=== PATIENT | male | born 1935 | race Caucasian/White ===

== ENCOUNTER 2017-01-03 20:45 | Inpatient (IN) ==
[2017-01-03] MEDS ORDERED: cloNIDine 0.1 MG TABLET PO STA (21:28)
--- NOTE | 2017-01-03 21:35 | Emergency Department Note ---
IChristoph Meredith, am scribing for, and in the presence of, Asmita Bland DO 21: 23. IBaldo Debra, DO, personally performed the services described in this documentation, ascribed by Ada Hawthorne in my presence, and it is both accurate and complete . Arrival - Arrival Chief Complaint: Arrhythmia/Palpitations Stated Complaint: Fast, hard heartbeat, dizzy, clammy, cold ED Nursing Triage Note: was seen in er on wednesday, was put on hydralazine 50mg one bid by dr segura for bradycardia. pt c/o funny feeling, clammy, shaking. has taken hydralazine daily since wednesday. Mode of Arrival: Ambulatory Limitations: No Limitations Source: Patient, Significant other (), Old Records Reviewed, RN Notes Reviewed Time Seen by Provider: 01/03/17 21:20 - History of Present Illness HPI Narrative: Pt is an 81 y/o white male reporting to the ED with c/o "feeling funny", clammy , and shaky. He denies any chest pain. Pt was seen here in the ED 2 days ago for a possible allergic to a medication he was started on by Dr. Lugo. At this visit Dr. Segura put him on hydralazine 50 mg BID for bradycardia. He has been taking this medication for the past 2 days. Pt has a history of HTN, COPD, pneumonia, kidney stones, and prostate cancer. Onset (ago): hour(s) Allergies/Adverse Reactions: Allergies Allergy/AdvReac Type Severity Reaction Status Date / Time ceftriaxone [From Rocephin] Allergy ANAPHYLAXIS Verified 03/14/16 06:16 Penicillins Allergy ANAPHYLAXIS Verified 03/14/16 06:16 Home Medications: Home Medications Medication Instructions Recorded Confirmed Type Aspirin [Ecotrin] 81 mg PO BEDTIME 03/14/16 01/03/17 History Atorvastatin [Lipitor] 5 mg PO DAILY 03/14/16 01/03/17 History Azelastine HCl [Azelastine 0.1% 1 spray BOTH NARES BID 03/14/16 01/03/17 History Nasal [place]] Ipratropium/Albuterol Inhaler 1 puff RESP TX QID 03/14/16 01/03/17 History [Combivent Respimat Inhaler] Irbesartan 300 mg PO DAILY 03/14/16 01/03/17 History Montelukast Tab [Singulair Tab] 10 mg PO DAILY 03/14/16 01/03/17 History amLODIPine [Norvasc] 10 mg PO BEDTIME 03/14/16 01/03/17 History Azithromycin Tab [Zithromax Tab] 250 mg PO DAILY #6 tablet 03/19/16 01/03/17 Rx Budesonide/Formoterol 160-4.5 2 puff INH BID #1 inhaler 03/19/16 01/03/17 Rx [Symbicort 160-4.5] Levofloxacin Tab [Levaquin Tab] 500 mg PO DAILY #6 tablet 03/19/16 01/03/17 Rx guaiFENesin ER TAB [Mucinex] 600 mg PO BID #60 tablet 03/19/16 01/03/17 Rx predniSONE TAB [PredniSONE] 10 mg PO DIRECTED #60 tablet 03/19/16 01/03/17 Rx hydrALAZINE TAB [Apresoline Tab] 50 mg PO BID #60 tablet 01/01/17 01/03/17 Rx Review of System - Review of System 12 point system: reviewed and no additional remarkable complaints except as stated - Review of System Constitutional: Present: as per HPI, other ("feeling funny" , clammy, and shaky) Cardiovascular: Present: as per HPI. Absent: chest pain Medical,Surgical,& Family Hx - Medical History Cardio: History of: Hypertension No history of: Pacemaker, PVD, Valvular Heart Disease Neurology: No history of: Brain Aneurysm, Cerebral Hemorrhage, Cerebrovascular Accident , Cerebral Palsy, Dementia, Migraine, Multiple Sclerosis, Parkinson's Disease, Peripheral Neuropathy, Seizures, TIA, Vertigo, Neurologocal Cancer HEENT: No history of: Ear Problem, Eye Problem, Dental Problems, Glaucoma, Oral Cancer, HEENT Problems Endocrine: No history of: Diabetes Mellitus (IDDM), Diabetes Mellitus (NIDDM), Thyroid Disorder, Endocrine Cancer, Endocrine Problems Respiratory: History of: COPD, Pneumonia, Respiratory Problems No history of: Intubation, Obstructive Sleep Apnea, Pulmonary Embolism, Pulmonary Hypertension, Lung Cancer Renal: No history of: Renal (Kidney) Cancer, Dialysis, Renal Failure, Renal Problems Genitourinary: History of: Kidney Stones, Prostate Problems (prostate cancer) No history of: Bladder Problem, Recurring Urinary Tract Infections, Genitourinary Cancer, Problems Gastrointestinal: No history of: Hemorrhoids, Hematochezia, Hepatitis, Liver Problems, Pancreatitis, Polyps, Ulcerative Colitis, Gastrointestinal Cancer, GI Problems Musculoskeletal: No history of: Amputation Reproductive: No histroy: Reproductive Problems Other: No history of: Malignant Hyperthermia - Surgical History Cardiac Surgeries: Sugical HX of: Cardiac Catheterization Patient Denies: Femoral-Popliteal Bypass Graft, Cardiac Surgery, Carotid Endarterectomy, Internal Defibrillator, Vascular Access Devices Thoracic Surgeries: Patient denies;: Kidney (Renal Surgery), Lithotripsy, Nephrectomy, Organ Transplant, Lobectomy Neurologic Surgeries: Patient denies: Brain Aneurysm, Cerebral Hemorrhage, Neurologic Surgery HEENT Surgeries: Patient denies: Carotid Endarterectomy, Eye Surgery, Tonsilectomy & Adenoidectomy Abdominal Surgeries: Surgical HX of: Colonoscopy, EGD Patient denies: Abdominal Surgery, Appendectomy, Cholecystectomy, Gastric Bypass Surgery, Hernia Repair, Splenectomy Reproductive Surgeries: Patient denies;: Cystoscopy, Genitourinary Surgery, Prostate Surgery Orthopedic Surgeries: Patient denies;: Implanted Devices, Orthopedic Surgery, Spinal Surgery, Total Hip Replacement, Total Knee Replacement - Family History Family History: Reports;: Family Cancer, Family Hypertension Denies;: Family Psychiatric Problems, Family Stroke - Social History Smoking Status: Never smoker Frequency of Alcohol Use: None Type of Drug Use: None Exam Vital Signs: Vital Signs Temperature 97.8 F 01/03/17 21:05 Pulse Rate 46 L 01/03/17 21:05 Respiratory Rate 20 01/03/17 21:05 Blood Pressure 165/96 01/03/17 21:05 O2 Sat by Pulse Oximetry 97 01/03/17 21:05 - General General appearance: alert, in no apparent distress - Head Head exam: Present: atraumatic, normocephalic - Eye Eye exam: Present: normal appearance, PERRL, EOMI - ENT ENT exam: Present: mucous membranes moist, normal external ear exam - Neck Neck exam: Present: full ROM, trachea midline. Absent: tenderness, meningismus , lymphadenopathy, thyromegaly - Chest Chest inspection: Present: symmetric chest wall rise. Absent: tenderness, rash - Respiratory Respiratory exam: Present: normal lung sounds bilaterally. Absent: respiratory distress - Cardiovascular Cardiovascular exam: Present: regular rate, normal rhythm, murmur (slight diastolic murmur). Absent: rubs, gallop - Abdominal Exam Abdominal exam: Present: soft, distention (mild), tenderness (episgastric ), normal bowel sounds - Extremities Exam Extremities exam: Present: full ROM, normal capillary refill. Absent: tenderness, pedal edema, calf tenderness - Back Exam Back exam: Present: full ROM. Absent: tenderness - Neurological Exam Neurological exam: Present: alert, oriented X3, CN II-XII intact. Absent: motor sensory deficit - Psychiatric Psychiatric exam: Present: normal affect, normal mood - Skin Skin exam: Present: warm, dry, intact, normal color Course Course Narrative: spoke with Dr Campos about pt . he agrees to admission. pt is stable at this time Results - Labs CBC & BMP: 01/03/17 21:30 01/03/17 21:30 Lab Results: I have reviewed the patients labs Labs: Laboratory Tests 01/03/17 21:30 WBC 7.4 RBC 4.58 Hgb 13.2 L Hct 39.8 L MCV 86.9 L Plt Count 200 MPV 9.1 L Laboratory Tests 01/03/17 21:30 INR 1.0 PT Patient/Control Mix 10.1 Circ Anticoag PTT 25.2 Laboratory Tests 01/03/17 21:30 Sodium 138 Potassium 4.0 Chloride 102 Carbon Dioxide 23 Anion Gap 17.0 H BUN 21 H Creatinine 1.30 Glucose 158 H Calcium 8.4 L CK-MB (CK-2) 2.2 Troponin I < 0.015 Globulin 2.2 L Laboratory Tests 01/03/17 21:30 B-Natriuretic Peptide 102 H - EKG EKG results: interpreted by JAYA, sinus rhythm - Diagnostic Findings Procedure: Chest x-ray: report reviewed by me (Minimal strandy scar or subsegmental atelectasis left lung base. Otherwise unchanged from the previous study. ) Disposition Clinical Impression: Bradycardia Case discussed with: patient, patient's family Disposition: Still a Patient Condition: Stable Time of Disposition: 22:18
[2017-01-03 21:36] LABS: Basophils % 0.5 % (0.0-0.8); Eosinophils # 0.2 10*3/uL (0.0-0.87); Eosinophils % 3.1 % (0.00-10.9); Hematocrit 39.8 VOL% (42.0-52.0); Hemoglobin 13.2 GM/DL (14.0-18.0); Immature Granulocytes % 0.3 %; Immature Granulocytes Absolute 0.02 #; Lymphocytes # 3.1 10*3/uL (1.4-4.0); Lymphocytes % 42.1 % (21.2-54.2); Mean Corpuscular HGB Conc 33.2 GM/DL (32-36); Mean Corpuscular Hemoglobin 29 PG (27-34); Mean Corpuscular Volume 86.9 FL (87-102); Mean Platelet Volume 9.1 FL (9.6-12.0); Monocytes # 0.7 10*3/uL (0.11-0.8); Monocytes % 9.8 % (1.7-12.7); Neutrophils # 3.3 10*3/uL (1.4-7.4); Neutrophils % 44.2 % (38.7-73.9); Platelet Count 200 T/CUMM (130-400); Red Blood Count 4.58 MC/CUMM (3.8-5.5); Red Cell Distribution Width 12.6 % (9.3-17.3); White Blood Count 7.4 T/CUMM (4-12)
[2017-01-03 21:48] LABS: PT Patient Result 10.1 SECS; Partial Thromboplastin Time 25.2 SECS (0-40)
--- NOTE | 2017-01-03 21:56 | XRay Report ---
History: Abnormal breath sounds Date: 01/03/2017 Study: Chest x-ray AP portable Comparison exam: March 16, 2016 chest x-ray The cardiac silhouette is upper normal in size. The mediastinal contours are unchanged. The pulmonary vasculature is not engorged. There is no gross pleural effusion. There is mild strandy subsegmental atelectasis in the left lung base. The lungs are otherwise clear. There is mild thoracic spondylosis Impression: Minimal strandy scar or subsegmental atelectasis left lung base. Otherwise unchanged from the previous study PROCEDURE INTERPRETED AT [facility] DEPARTMENT OF RADIOLOGY Final Report Signed by: Dr. Lindsay Greene
[2017-01-03 21:59] LABS: Alanine Aminotransferase 26 U/L (16-61); Albumin 4.2 G/DL (3.4-5.0); Alkaline Phosphatase 78 U/L (45-117); Aspartate Amino Transferase 14 U/L (0-37); Blood Urea Nitrogen 21 MG/DL (7-18); Calcium 8.4 MG/DL (8.5-10.1); Glucose 158 MG/DL (74-106); Osmolality,Calculated 280.7 MOS/KG (273-304); Sodium 138 MMOL/L (136-145); Total Protein 6.4 G/DL (6.4-8.3); Troponin I Only < 0.015 NG/ML (0.00-0.045)
[2017-01-03] MEDS ORDERED: ALPRAZolam 0.25 MG TABLET PO ONE (22:34)
[2017-01-03] MEDS ORDERED: SODIUM CHLORIDE 0.9% 250 ML IV STA (22:35)
[2017-01-03] MEDS ORDERED: ONDANSETRON 4 MG/2 ML VIAL IV PRN (22:36)
[2017-01-03] MEDS ORDERED: MAGNESIUM SULF RIDER 4 GM in PREMIX 1 EACH IV PRN (22:36)
[2017-01-03] MEDS ORDERED: MAGNESIUM SULF RIDER 2 GM in PREMIX 1 EACH IV PRN (22:36)
[2017-01-03] MEDS ORDERED: ALPRAZolam 0.5 MG TABLET ONE (22:37)
[2017-01-03] MEDS ORDERED: ENOXAPARIN 40 MG/0.4 ML SYRINGE SUBCUT SCH (23:00)
[2017-01-04 00:59] LABS: Troponin I Only < 0.015 NG/ML (0.00-0.045)
[2017-01-04] MEDS: SODIUM CHLORIDE 0.9% 1,000 ML IV SCH ×3 (01:29→19:55)
[2017-01-04 03:07] LABS: Risk Ratio 3.09; VLDL CHOLESTEROL 16.8 MG/DL
[2017-01-04 03:08] LABS: Troponin I Only < 0.015 NG/ML (0.00-0.045)
[2017-01-04 06:17] LABS: Troponin I Only 0.021 NG/ML (0.00-0.045)
--- NOTE | 2017-01-04 07:37 | EKG Report ---
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
--- NOTE | 2017-01-04 07:54 | EKG Report ---
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
--- NOTE | 2017-01-04 07:55 | EKG Report ---
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
[2017-01-04] MEDS ORDERED: ZALEPLON 5 MG CAPSULE PO PRN (10:50)
[2017-01-04] MEDS ORDERED: BISACODYL 5 MG TABLET PO PRN (10:50)
[2017-01-04] MEDS ORDERED: ACETAMINOPHEN 325 MG TABLET PO PRN (10:50)
--- NOTE | 2017-01-04 11:10 | Cardiology History & Physical ---
<Swathi Lynn E - Last Filed: 01/04/17 11:47> Assessment and Plan - Time spent with patient Time spent with patient: Greater than 30 minutes (due to assessment, plan, and documentation) (1) Symptomatic bradycardia Status: Acute Assessment and plan: HR currently in the 50's and asymptomatic. All kash blocking agents have been held. Will discuss rescheduling left heart catheterization to 01/06/[address] Ye to follow with further plan and addendum. Current Visit: Yes (2) Hypertension Status: Chronic Assessment and plan: Will resume home medications. Patient is hesitant to restart Procardia XL due to recent side effects of constipation, weakness, and dizziness. Will discuss with Dr. Ye. Further plan and addendum to follow. Current Visit: Yes (3) History of coronary artery disease Status: Chronic Current Visit: Yes (4) Hyperlipidemia Status: Chronic Assessment and plan: Continue statin. Current Visit: Yes (5) History of prostate cancer Status: Chronic Current Visit: Yes History of Present Illness Chief complaint: bradycardia History of present illness: Mr. Cadena is a 81 year old male who is routinely followed by Dr. Lugo. He presented to the emergency room last night with complaints of "feeling funny," dizziness, feeling cold and clammy, and bradycardia. Mr. Cadena has a history of coronary artery disease, hypertension, bradycardia with heart rates in the 50's, hypercholesterolemia, and previous prostate cancer. He is a lifetime nonsmoker. His primary care provider is Dr. Orosco. Mr. Cadena has been to the hospital twice within the past week with feelings of dizziness, feeling chilled and clammy, and "feeling funny." Since the end of August 2016, he has had issues with uncontrolled hypertension. He is active and works out in the gym at [employer] several times weekly, follows a low-salt diet, and still works around 40 hours per week. Mr. Cadena tells me he had been on Avapro and Norvasc for many years and his blood pressure had been very well controlled until August of this past year. He kept a blood pressure log for a couple months and reported back to Dr. Lugo with his readings. Upon reporting back, his medications were changed. The norvasc was discontinued and he was placed on Procardia XL 90 mg PO daily. He continued to monitor his blood pressure and noted systolic readings in the 180's. Bystolic was added to his BP medication regimen but Mr. Cadena reports he did not start this as he was afraid his heart rate would drop too low. After speaking with the [facility], he started the Bystolic last . On 01/01/17, he presented to the emergency room with complaints of dizziness, weakness, near syncope, and bradycardia with pulse of 35. He was monitored in the emergency department. Bystolic was discontinued and he was placed on Hydralazine 50 mg PO three times daily. He had an appointment to follow up with Dr. Lugo tomorrow. Last night, Mr. Cadena tells me that around 1929, he began to "feel funny" and began shaking and feeling cold and clammy as he did on Wednesday. He reports his heart rate has continued to be in the 40's-50's since coming to the emergency room on Wednesday. He recently underwent stress testing which was found to be suspicious for ischemia and was scheduled for a left heart catheterization on . Ejection fraction per stress testing was estimated at 49%. He denies any chest pain or dyspnea at rest or on exertion, denies nausea, vomiting, diaphoresis. His EKG on admission showed a sinus rhythm with first degree AV block. This morning, he had some telemetry rhythm strips which appear to be a type II second degree block with heart rates in the 30's. Last heart catheterization was performed 06/09/14 during which he received successful stenting of an in-stent restenosis related to bare metal stent placement in the mid LAD and primary stenting of an 80% stenosis of the proximal LAD. At that time, he was also found to have distal anterior and apical hypokinesis and an ejection fraction in the 40% range. Home Medications Medication Instructions Recorded Confirmed Type Aspirin [Ecotrin] 81 mg PO BEDTIME 03/14/16 01/04/17 History Atorvastatin [Lipitor] 5 mg PO DAILY 03/14/16 01/04/17 History Azelastine HCl [Azelastine 0.1% 1 spray BOTH NARES BID 03/14/16 01/04/17 History Nasal [place]] Irbesartan 300 mg PO DAILY 03/14/16 01/04/17 History Montelukast Tab [Singulair Tab] 10 mg PO QOTHER DAY 03/14/16 01/04/17 History Azithromycin Tab [Zithromax Tab] 250 mg PO DAILY #6 tablet 03/19/16 01/04/17 Rx guaiFENesin ER TAB [Mucinex] 600 mg PO BID #60 tablet 03/19/16 01/04/17 Rx hydrALAZINE TAB [Apresoline Tab] 50 mg PO BID #60 tablet 01/01/17 01/04/17 Rx Beclomethasone 80 Mcg Inhaler 1 puff INH BID 01/04/17 01/04/17 History [Qvar 80 Mcg] Fluticasone 50 Mcg Nasal [place] 2 spray BOTH NARES DAILY 01/04/17 01/04/17 History [Flonase Nasal [place]] Nifedipine [Nifedipine ER] 90 mg PO DAILY 01/04/17 01/04/17 History Allergies Allergy/AdvReac Type Severity Reaction Status Date / Time ceftriaxone [From Rocephin] Allergy ANAPHYLAXIS Verified 03/14/16 06:16 Penicillins Allergy ANAPHYLAXIS Verified 03/14/16 06:16 Review of systems: - Constitutional: Present: weakness, chills, As per HPI. Absent: anorexia, daytime sleepiness, excessive sweating, fever(s), frequent falls, headache(s), increased appetite, lethargy, malaise, night sweats, stops breathing during sleep, weight gain, weight loss, fatigue. - EENT Eyes: Present: As per HPI. Absent: blurry vision, diplopia, loss of vision Ears: Present: As per HPI. Absent: decreased hearing, ear discharge, ear pain Nose, mouth and throat: Present: As per HPI. Absent: dysphagia, epistaxis, headache(s), hoarseness, lip swelling, nasal congestion, neck mass, neck pain, sinus pressure, sore throat, throat swelling, tongue swelling, vertigo - Cardiovascular: Present: edema (to RLE on occasion), lightheadedness, as per HPI. Absent: chest pain at rest, chest pain with activity, dyspnea, dyspnea on exertion, claudication, diaphoresis, radiating jaw, neck or arm pain, orthopnea , palpitations, PND - Respiratory: Present: as per HPI. Absent: dyspnea, dyspnea on exertion, cough , hemoptysis, wheezing, snoring, pain on inspiration - Gastrointestinal: Present: constipation, As per HPI. Absent: abdominal pain, bloating, change in bowel habits, diarrhea, heartburn, hematemesis, hematochezia , loose stools, melena, nausea, vomiting - Genitourinary: Present: As per HPI. Absent: difficulty urinating, dysuria, flank pain, hematuria, nocturia, urinary frequency, urinary incontinence - Musculoskeletal: Present: As per HPI. Absent: arthralgias, back pain, joint swelling, limited range of motion, muscle cramps, muscle weakness, myalgias - Neurological: Present:dizziness, near syncope, As per HPI. Absent: abnormal gait, abnormal speech, behavioral changes, confusion, convulsions, disequilibrium, focal weakness, frequent falls, headache(s), memory loss, numbness, paresthesias, radicular pain, syncope, tremor(s) - Psychiatric: Present: As per HPI. Absent: anxiety, confusion, depression, panic attacks - Endocrine: Present: As per HPI. Absent: cold intolerance, fatigue, heat intolerance, polydipsia, polyphagia - Hematologic/Lymphatic: Present: As per HPI. Absent: easy bleeding, easy bruising, lymphadenopathy Medical,Surgical,& Family Hx - Medical History Cardio: History of: Hypertension No history of: Pacemaker, PVD, Valvular Heart Disease Neurology: No history of: Brain Aneurysm, Cerebral Hemorrhage, Cerebrovascular Accident , Cerebral Palsy, Dementia, Migraine, Multiple Sclerosis, Parkinson's Disease, Peripheral Neuropathy, Seizures, TIA, Vertigo, Neurologocal Cancer HEENT: No history of: Ear Problem, Eye Problem, Dental Problems, Glaucoma, Oral Cancer, HEENT Problems Endocrine: No history of: Diabetes Mellitus (IDDM), Diabetes Mellitus (NIDDM), Thyroid Disorder, Endocrine Cancer, Endocrine Problems Respiratory: History of: COPD, Pneumonia, Respiratory Problems No history of: Intubation, Obstructive Sleep Apnea, Pulmonary Embolism, Pulmonary Hypertension, Lung Cancer Renal: No history of: Renal (Kidney) Cancer, Dialysis, Renal Failure, Renal Problems Genitourinary: History of: Kidney Stones, Prostate Problems (prostate cancer) No history of: Bladder Problem, Recurring Urinary Tract Infections, Genitourinary Cancer, Problems Gastrointestinal: No history of: Hemorrhoids, Hematochezia, Hepatitis, Liver Problems, Pancreatitis, Polyps, Ulcerative Colitis, Gastrointestinal Cancer, GI Problems Musculoskeletal: No history of: Amputation Reproductive: No histroy: Reproductive Problems Other: No history of: Malignant Hyperthermia - Surgical History Cardiac Surgeries: Sugical HX of: Cardiac Catheterization Patient Denies: Femoral-Popliteal Bypass Graft, Cardiac Surgery, Carotid Endarterectomy, Internal Defibrillator, Vascular Access Devices Thoracic Surgeries: Patient denies;: Kidney (Renal Surgery), Lithotripsy, Nephrectomy, Organ Transplant, Lobectomy Neurologic Surgeries: Patient denies: Brain Aneurysm, Cerebral Hemorrhage, Neurologic Surgery HEENT Surgeries: Patient denies: Carotid Endarterectomy, Eye Surgery, Tonsilectomy & Adenoidectomy Abdominal Surgeries: Surgical HX of: Colonoscopy, EGD Patient denies: Abdominal Surgery, Appendectomy, Cholecystectomy, Gastric Bypass Surgery, Hernia Repair, Splenectomy Reproductive Surgeries: Patient denies;: Cystoscopy, Genitourinary Surgery, Prostate Surgery Orthopedic Surgeries: Patient denies;: Implanted Devices, Orthopedic Surgery, Spinal Surgery, Total Hip Replacement, Total Knee Replacement - Family History Family History: Reports;: Family Cancer, Family Hypertension Denies;: Family Psychiatric Problems, Family Stroke - Social History Smoking Status: Never smoker Frequency of Alcohol Use: None Type of Drug Use: None Marital Status: Lives With:: Spouse Functional capacity: independent ambulation Cardiology Physical Exam - Constitutional Vitals: Vital Signs Temp Pulse Resp BP Pulse Ox 97.8 F 49 L 18 154/71 97 01/04/17 08:00 01/04/17 08:00 01/04/17 08:00 01/04/17 08:00 01/04/17 08:00 Intake and Output 01/03/17 01/04/17 01/04/17 22:59 06:59 14:59 Intake Total 1000 / 1000 Output Total 650 / 650 Balance -650 / -650 1000 / 1000 Intake: IV 1000 / 1000 Ns 1,000 ml @ 125 mls/hr 1000 / 1000 IV .Q8H LETY Rx#: [id number] Output: Urine 650 / 650 Other: # Bowel Movements 1 Weight 177 lb Exam: General: Present: Appears Well, No Apparent Distress. Pleasant and cooperative. Appears comfortable. HEENT: Present: PERRL, Normocephaly, atraumatic. Mucus Membranes Moist. No jaundice noted. Conjunctiva moist and clear, sclerae anicteric Neck: Present: Supple Neck, Midline Trachea, No Masses, No Bruit Cardiac: Present: Regular Rate and Rhythm, bradycardia, No Murmur Lungs: Present: Clear to auscultation bilaterally, no wheeze, rhonchi, rales. Neuro: Present: Awake, alert, and oriented x3. Moves all extremities well without hemiparesis or paralysis. Grossly Intact. Absent: Resting Tremor, Essential Tremor Abdomen: Present: Soft, Active Bowel Sounds, No Masses, Non-Tender, nondistended. No abdominal bruit or thrill noted. Skin: Present: Clear. Absent: Rash, No skin breakdown. Musculoskeletal: Present: No Fluid Collection, No Pain, Normal Range of Motion Extremities: Present: Normal Gait, No Clubbing, No Cyanosis, Upper Extr. Pulses 2+, Lower Extr. Pulses 2+, trace right lower extremity edema. Capillary refill less than 3 seconds. Result/EKG - Labs CBC & BMP: 01/03/17 21:30 01/03/17 21:30 Lab Results: I have reviewed the past 24 hour labs Labs: Laboratory Results - last 24 hr 01/04/17 01/04/17 01/04/17 00:06 01:40 01:40 Total Creatine Kinase 95 84 CK-MB (CK-2) 1.8 1.6 Troponin I < 0.015 < 0.015 Triglycerides 84 Cholesterol 142 LDL Cholesterol 91.0 VLDL Cholesterol 16.8 HDL Cholesterol 46 Heart Disease Risk Ratio 3.09 01/04/17 05:00 Total Creatine Kinase 76 CK-MB (CK-2) 1.4 Troponin I 0.021 Triglycerides Cholesterol LDL Cholesterol VLDL Cholesterol HDL Cholesterol Heart Disease Risk Ratio - EKG EKG results: interpreted by me, sinus rhythm (with first degree AV block) <Ibrahima Ye - Last Filed: 01/04/17 21:26> Assessment and Plan - Time spent with patient Time spent with patient: Greater than 30 minutes (1) Symptomatic bradycardia Status: Acute Assessment and plan: I, Ibrahima Ye, has seen, examined, and am involved in the evaluation and management of this patient. I've reviewed the note below/above and also see my thoughts below: The patient is having some bradycardia, slow enough and bradycardic enough that is causing his symptoms of "hollowing my chest, clamminess, and heart rate in the 40s and pallor". Differential diagnosis would include ischemia causing this problem. Plan/recommendation: I conferred care with Dr. Lugo. Pacemaker is indicated. Will be done by Dr. Rhodes tomorrow. Will watch for any signs or symptoms of ischemia afterwards. Dr. uLgo plans to do a heart cath on him on 01/14 assuming he remains stable. Currently we will keep him off any medication which caused a worse in the bradycardia. Will hold Lovenox for now. Keep him on aspirin. Check blood pressure and pulse reclining and standing. Treat constipation-MiraLAX, Metamucil. EKG every morning 3. Cardiac isoenzymes. Current Visit: Yes (2) Bradycardia Status: Acute Current Visit: Yes (3) History of coronary artery disease Status: Chronic Current Visit: Yes (4) Hyperlipidemia Status: Chronic Current Visit: Yes History of Present Illness History of present illness: Mr. Cadena is a 81 year old male Cardiology Physical Exam - Constitutional Vitals: Vital Signs Temp Pulse Resp BP Pulse Ox 98.4 F 58 L 18 151/73 94 L 01/04/17 20:00 01/04/17 20:00 01/04/17 20:00 01/04/17 20:00 01/04/17 20:00 Intake and Output 01/04/17 01/04/17 01/04/17 07:59 15:59 23:59 Intake Total 1240 / 1240 Output Total 650 / 650 900 / 900 Balance -650 / -650 340 / 340 Intake: IV 1000 / 1000 Ns 1,000 ml @ 125 mls/hr 1000 / 1000 IV .Q8H LETY Rx#: [id number] Oral 240 / 240 Output: Urine 650 / 650 900 / 900 Other: # Bowel Movements 1 1 Weight 80.286 kg Patient Weight 01/04/17 23:59 Weight 80.286 kg Result/EKG - Labs CBC & BMP: 01/03/17 21:30 01/03/17 21:30 Labs: Laboratory Results - last 24 hr 01/04/17 01/04/17 01/04/17 00:06 01:40 01:40 Total Creatine Kinase 95 84 CK-MB (CK-2) 1.8 1.6 Troponin I < 0.015 < 0.015 Triglycerides 84 Cholesterol 142 LDL Cholesterol 91.0 VLDL Cholesterol 16.8 HDL Cholesterol 46 Heart Disease Risk Ratio 3.09 01/04/17 01/04/17 01/04/17 05:00 12:51 18:47 Total Creatine Kinase 76 82 82 CK-MB (CK-2) 1.4 1.3 1.3 Troponin I 0.021 < 0.015 < 0.015 Triglycerides Cholesterol LDL Cholesterol VLDL Cholesterol HDL Cholesterol Heart Disease Risk Ratio
[2017-01-04] MEDS: AZELASTINE NASAL 137 MCG/SPRAY 30 ML BOTTLE BOTH NARES SCH ×2 (11:58→21:48)
[2017-01-04] MEDS: IRBESARTAN 150 MG TABLET PO SCH (11:58)
[2017-01-04] MEDS: ATORVASTATIN 10 MG TABLET PO SCH (11:58)
[2017-01-04] MEDS: DOCUSATE SODIUM 100 MG CAPSULE PO SCH ×2 (11:58→21:49)
[2017-01-04] MEDS: PANTOPRAZOLE 40 MG TABLET PO SCH (11:58)
[2017-01-04] MEDS: POLYETHYLENE GLYCOL POWDER 17 GM PACK PO SCH (12:53)
[2017-01-04] MEDS: PSYLLIUM POWDER 3.7 GM/PACK PO SCH (12:53)
[2017-01-04 13:34] LABS: Troponin I Only < 0.015 NG/ML (0.00-0.045)
[2017-01-04] MEDS: NIFEdipine 10 MG CAPSULE PO SCH ×2 (18:11→21:49)
[2017-01-04 19:35] LABS: Troponin I Only < 0.015 NG/ML (0.00-0.045)
[2017-01-04] MEDS ORDERED: VANCOMYCIN INJ 1,000 MG in SODIUM CHLORIDE 0.9% 250 ML IV ONE (20:04)
[2017-01-04] MEDS ORDERED: VANCOMYCIN 500 MG VIAL IRRIG ONE (20:04)
--- NOTE | 2017-01-04 20:10 | Electrophysiology Consultation ---
History of Present Illness - Data of Consult Patient: new to practice Consult date: 01/04/17 Requesting Physician: Marcio Lugo - Consult Narrative Reason for consult: Symptomatic bradycardia History of present illness: Mr. Cadena is a 81 yM, followed by dr. Collado. He presented to the emergency room last night with complaints of "feeling funny," dizziness, feeling cold and clammy, and bradycardia. H/o coronary artery disease, hypertension, bradycardia with heart rates in the 50's, hypercholesterolemia, and previous prostate cancer. He is a lifetime nonsmoker. He had been hospitalized twice with symptomatic bradycardia in the past. His BP is also less controlled recently. He is otherwise quite active. His medication have been adjusted but the bradycardia returned. EKG and telemetry shows SR, 1AVB, IACD. Occasional episodes of more prominent 1AVB and 2:1 AVB - with sinus rate in the normal range. SOme of the block follow Mobitz 1 Pattern. Some tracings show late blocked PACs. THe bradycardia events are symptomatic. Several pauses in the 2-3s range due to 2AVB. He recently underwent stress testing which was found to be suspicious for ischemia and was scheduled for a left heart catheterization on 01/14/17. Ejection fraction per stress testing was estimated at 49%. Last heart catheterization was performed 06/09/14 during which he received successful stenting of an in-stent restenosis related to bare metal stent placement in the mid LAD and primary stenting of an 80% stenosis of the proximal LAD. He had prior presyncope but no conrdao syncope so far. CC: Marcio Lugo MD - Home Medications and Allergies Home Medications: Home Medications Medication Instructions Recorded Confirmed Type Aspirin [Ecotrin] 81 mg PO BEDTIME 03/14/16 01/04/17 History Atorvastatin [Lipitor] 5 mg PO DAILY 03/14/16 01/04/17 History Azelastine HCl [Azelastine 0.1% 1 spray BOTH NARES BID 03/14/16 01/04/17 History Nasal [place]] Irbesartan 300 mg PO DAILY 03/14/16 01/04/17 History Montelukast Tab [Singulair Tab] 10 mg PO QOTHER DAY 03/14/16 01/04/17 History Azithromycin Tab [Zithromax Tab] 250 mg PO DAILY #6 tablet 03/19/16 01/04/17 Rx guaiFENesin ER TAB [Mucinex] 600 mg PO BID #60 tablet 03/19/16 01/04/17 Rx hydrALAZINE TAB [Apresoline Tab] 50 mg PO BID #60 tablet 01/01/17 01/04/17 Rx Beclomethasone 80 Mcg Inhaler 1 puff INH BID 01/04/17 01/04/17 History [Qvar 80 Mcg] Fluticasone 50 Mcg Nasal [place] 2 spray BOTH NARES DAILY 01/04/17 01/04/17 History [Flonase Nasal [place]] Nifedipine [Nifedipine ER] 90 mg PO DAILY 01/04/17 01/04/17 History Allergies/Adverse Reactions: Allergies Allergy/AdvReac Type Severity Reaction Status Date / Time ceftriaxone [From Rocephin] Allergy ANAPHYLAXIS Verified 03/14/16 06:16 Penicillins Allergy ANAPHYLAXIS Verified 03/14/16 06:16 Medical,Surgical,& Family Hx - Medical History Cardio: History of: Hypertension No history of: Pacemaker, PVD, Valvular Heart Disease Neurology: No history of: Brain Aneurysm, Cerebral Hemorrhage, Cerebrovascular Accident , Cerebral Palsy, Dementia, Migraine, Multiple Sclerosis, Parkinson's Disease, Peripheral Neuropathy, Seizures, TIA, Vertigo, Neurologocal Cancer HEENT: No history of: Ear Problem, Eye Problem, Dental Problems, Glaucoma, Oral Cancer, HEENT Problems Endocrine: No history of: Diabetes Mellitus (IDDM), Diabetes Mellitus (NIDDM), Thyroid Disorder, Endocrine Cancer, Endocrine Problems Respiratory: History of: COPD, Pneumonia, Respiratory Problems No history of: Intubation, Obstructive Sleep Apnea, Pulmonary Embolism, Pulmonary Hypertension, Lung Cancer Renal: No history of: Renal (Kidney) Cancer, Dialysis, Renal Failure, Renal Problems Genitourinary: History of: Kidney Stones, Prostate Problems (prostate cancer) No history of: Bladder Problem, Recurring Urinary Tract Infections, Genitourinary Cancer, Problems Gastrointestinal: No history of: Hemorrhoids, Hematochezia, Hepatitis, Liver Problems, Pancreatitis, Polyps, Ulcerative Colitis, Gastrointestinal Cancer, GI Problems Musculoskeletal: No history of: Amputation Reproductive: No histroy: Reproductive Problems Other: No history of: Malignant Hyperthermia - Surgical History Cardiac Surgeries: Sugical HX of: Cardiac Catheterization Patient Denies: Femoral-Popliteal Bypass Graft, Cardiac Surgery, Carotid Endarterectomy, Internal Defibrillator, Vascular Access Devices Thoracic Surgeries: Patient denies;: Kidney (Renal Surgery), Lithotripsy, Nephrectomy, Organ Transplant, Lobectomy Neurologic Surgeries: Patient denies: Brain Aneurysm, Cerebral Hemorrhage, Neurologic Surgery HEENT Surgeries: Patient denies: Carotid Endarterectomy, Eye Surgery, Tonsilectomy & Adenoidectomy Abdominal Surgeries: Surgical HX of: Colonoscopy, EGD Patient denies: Abdominal Surgery, Appendectomy, Cholecystectomy, Gastric Bypass Surgery, Hernia Repair, Splenectomy Reproductive Surgeries: Patient denies;: Cystoscopy, Genitourinary Surgery, Prostate Surgery Orthopedic Surgeries: Patient denies;: Implanted Devices, Orthopedic Surgery, Spinal Surgery, Total Hip Replacement, Total Knee Replacement - Family History Family History: Reports;: Family Cancer, Family Hypertension Denies;: Family Psychiatric Problems, Family Stroke - Social History Smoking Status: Never smoker Frequency of Alcohol Use: None Type of Drug Use: None 12 point system: reviewed and no additional remarkable complaints except as stated Exam - Constitutional Vitals: Period Temp Pulse Resp BP Sys/Mcmahon Pulse Ox Last 24 Hr 97.2 F-98.6 F 49-58 16-20 142-192/62-86 96-98 General appearance: normal weight - Head Head exam: Present: normal inspection - Eye Eye exam: Absent: conjunctival injection Pupils: Absent: dilated - ENT ENT exam: Present: normal exam - Neck Neck exam: Present: normal inspection - Respiratory Respiratory exam: Present: clear to auscultation bilaterally - Cardiovascular Cardiovascular exam: Present: bradycardia, regular rate and rhythm, systolic murmur - GI/Abdominal GI/Abdominal exam: Present: normal bowel sounds - Extremities Exam Extremities exam: Present: normal inspection, normal capillary refill. Absent: edema - Back Exam Back exam: Present: normal inspection - Neurological Exam Neurological exam: Present: alert, oriented X3 - Psychiatric Psychiatric exam: Present: normal affect, normal mood - Skin Skin exam: Present: normal color, warm. 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 CAD, preserved LVEF. HTN, HLP. -Bradycardia. We discussed risks and benefits of management options. We will proceed with a DDD PM implant tomorrow. NPO after MN. PCV allergy. -Keep on telemetry -Once protected from bradycardia, increasing BB will be an option for HTN, CAD Current Visit: Yes (2) History of coronary artery disease Status: Chronic Current Visit: Yes (3) Hypertension Status: Chronic Current Visit: Yes (4) Hyperlipidemia Status: Chronic Current Visit: Yes (5) History of prostate cancer Status: Chronic Current Visit: Yes
[2017-01-04] MEDS: NIFEdipine 10 MG CAPSULE PO PRN (21:48)
[2017-01-04] MEDS: ASPIRIN EC 81 MG TABLET PO SCH (21:48)
[2017-01-05 01:30] LABS: Basophils % 0.9 % (0.0-0.8); Eosinophils # 0.2 10*3/uL (0.0-0.87); Eosinophils % 3.2 % (0.00-10.9); Hematocrit 35.6 VOL% (42.0-52.0); Hemoglobin 11.8 GM/DL (14.0-18.0); Immature Granulocytes % 0.6 %; Immature Granulocytes Absolute 0.03 #; Lymphocytes # 1.6 10*3/uL (1.4-4.0); Lymphocytes % 33.7 % (21.2-54.2); Mean Corpuscular HGB Conc 33.1 GM/DL (32-36); Mean Corpuscular Hemoglobin 29 PG (27-34); Mean Corpuscular Volume 87.9 FL (87-102); Mean Platelet Volume 9.2 FL (9.6-12.0); Monocytes # 0.5 10*3/uL (0.11-0.8); Monocytes % 9.8 % (1.7-12.7); Neutrophils # 2.4 10*3/uL (1.4-7.4); Neutrophils % 51.8 % (38.7-73.9); Platelet Count 176 T/CUMM (130-400); Red Blood Count 4.05 MC/CUMM (3.8-5.5); Red Cell Distribution Width 12.6 % (9.3-17.3); White Blood Count 4.7 T/CUMM (4-12)
[2017-01-05 01:55] LABS: Calcium 8.2 MG/DL (8.5-10.1); Magnesium 2.3 MG/DL (1.8-2.4); Osmolality,Calculated 287.8 MOS/KG (273-304); Potassium 4.1 MMOL/L (3.5-5.1)
[2017-01-05 01:59] LABS: Troponin I Only 0.018 NG/ML (0.00-0.045)
[2017-01-05] MEDS: PANTOPRAZOLE 40 MG TABLET PO SCH ×2 (05:46→11:18)
[2017-01-05] MEDS: NIFEdipine 10 MG CAPSULE PO PRN (05:46)
--- NOTE | 2017-01-05 07:21 | EKG Report ---
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
[2017-01-05] MEDS ORDERED: VANCOMYCIN 500 MG VIAL ONE (08:45)
[2017-01-05] MEDS ORDERED: HEPARIN/NACL 0.9% 2 UNITS/ML 500 ML IV ONE (08:45)
[2017-01-05] MEDS ORDERED: LIDOCAINE 1% 20 ML VIAL ONE (08:45)
--- NOTE | 2017-01-05 08:45 | History and Physical Update ---
Sedation H&P Update - History and Physical H&P was reviewed, the patient examined and there: are no changes in the patients condition since last H&P was completed. - Dictation Physical: refer to H&P completed by admitting physician - Physical Exam Mental Status: alert and oriented Heart: regular rate and rhythm, other (bradycardia) Lung: clear to auscultation Abdomen: within normal limits Vitals: within normal limits - Sedation Plan for Sedation: moderate Patient Consent: Procedure disscussed with patient and patinet has consented., Risks and benefits were discussed with patient,including infection,, bleeding, injury to surrounding structures, seizure, temporary nerve, Patient understands and accepts potential risks/benefits and agrees to ASA Class: III Airway Assessment: Class II: Soft palate, uvula, fauces visible
[2017-01-05] MEDS ORDERED: MIDAZOLAM 2 MG/2 ML VIAL ONE ×2 (09:00→09:17)
[2017-01-05] MEDS ORDERED: VANCOMYCIN INJ 1,000 MG in SODIUM CHLORIDE 0.9% 250 ML IV ONE ×2 (09:00→22:13)
[2017-01-05] MEDS ORDERED: fentaNYL 100 MCG/2 ML VIAL ONE ×2 (09:01→09:17)
[2017-01-05] MEDS ORDERED: TISSUE ADHESIVE 1 EACH APPLICATOR TOP ONE (09:52)
--- NOTE | 2017-01-05 10:23 | Cardiac Pacemaker ---
- Preoperative diagnosis Date of Procedure:: 01/05/17 Preoperative Diagnosis: Documented nonreversible symptomatic bradycardia due to , sinus node dysfunction, second-degree atrioventricular block Post-op diagnosis: same Procedure: PROCEDURAL SUMMARY DDD pacemaker implant from left cephalic access. Successful procedure, no complications. PLAN Bed rest for 4 hours. CXR, ECG stat. Vancomycin 1g iv. Routine post PM implant nursing care. DIAGNOSES Sick sinus syndrome Intermittent 2AVB Symptomatic bradycardia CAD HTN Sedation A timeout was performed. Conscious sedation was initiated and maintained with iv. Versed and Fentanyl. The patient was continuously monitored by electrocardiography, pulse oximetry and NIBP. Antibiotic prophylaxis Iv. Vancomycin was used prior to the procedure. PROCEDURE The left pectoral area was meticulously prepared with ChloroPrep surgical scrub. Sterile draping was applied and Ioban was used to cover the operation site. The image intensifier was draped with a sterile bag and positioned over the patient's chest. After infiltration with 1% lidocaine, an incision was made in the left infraclavicular area, parallel to the deltopectoral groove. The incision was carried down to the level of the pectoral fascia, with careful cauterization of all bleeders. A subcutaneous pocket was then created superficial to the pectoral fascia with sharp and blunt dissection and hemostasis was achieved. The cephalic branch of the axillary vein was isolated, as it coursed in the deltopectoral groove, and circumferential ties were placed around it. The distal tie was ligated and the proximal tie was used to control back bleeding through the small venotomy which allowed the introduction of a 0.035 guidewire. The guidewire was inserted with the aid of a vein elevator and smooth-tipped fine forceps. A peel-away introducer was inserted over the guidewire. The dilator of the introducer was removed, the guidewire was secured to the drape, and the right ventricular lead was passed through the introducer and advanced to the right ventricular outflow tract under fluoroscopic guidance. The introducer sheath was then removed. The ventricular lead was positioned in the right ventricular cavity using a curved stiffening stylet. The curved stylet was replaced with a straight stylet which was advanced to the electrode tip and used to deploy the active fixation mechanism. The lead was tested repeatedly for stability. A second peel-away introducer was inserted over the guidewire. The dilator of the introducer was removed, the guidewire was secured to the drape, and the atrial lead was passed through the introducer and advanced to the right atrium. Under fluoroscopic guidance, the atrial electrode was then positioned in the right atrial cavity using a curved stylet and tested repeatedly for stability. Lead measurements were then determined to be satisfactory as detailed below. The leads were tested for stability and phrenic nerve stimulation was excluded with pacing at 10 Volts. The leads were anchored in the subcutaneous tissue with nonabsorbable suture on the anchoring sleeve near the point of entry to the vein. The PM generator was then attached to the leads and sealed in the prescribed manner. The wound was then flushed with Vancomycin and closed using a double layer of 2- 0 absorbable Vicryl sutures followed by a subcuticular running suture with 4-0 Monocryl, then Exofin. A sterile dressing, then pressure dressing was applied. The device was programmed as detailed below. Implants Device: Medtronic Advisa DDDR PM, Model A2DR01, SN: [id number], location: left infraclavicular Right ventricular lead: Medtronic 5076-58, SN: [id number], location: RV septum Right atrial lead: Medtronic 5076-52, SN: [id number], location: RA appendage The implanted system is MRI conditional. Measurements RV bipolar: threshold 0.7 V @ 0.5 ms, R 7.4 mV, impedance 952 Ohm RA bipolar: threshold 2.0 V @ 0.5 ms, P 1.3 mV, [id number] Ohm Device settings DDDR 60/110 Mode switch on Anesthesia: moderate conscious sedation Surgeon / Physician: Lalo Patino Lamp Shade Maker: other (Tori) Estimated blood loss: minimal Specimens: none sent Condition: stable Disposition: floor - Medications / Follow-up
[2017-01-05] MEDS ORDERED: oxyCODONE/ACETAMINOPHEN 5-325 MG TABLET PO PRN (10:29)
--- NOTE | 2017-01-05 11:01 | XRay Report ---
Portable chest Date: 01/05/2017 Clinical history: Lead placement Comparison: 01/03/2017 Technique: Portable AP sitting chest Findings: The heart is minimally enlarged with coronary artery calculations/stents. Insertion of left subclavian atrioventricular pacemaker with no pneumothorax. Reduced atelectasis at the left lung base. Stable mediastinum and osseous structures. Impression: Insertion of left subclavian atrioventricular pacemaker with no pneumothorax. Coronary artery calcifications/stents. Reduced atelectasis at the left lung base. PROCEDURE INTERPRETED AT [facility] DEPARTMENT OF RADIOLOGY Final Report Signed by: Dr. Griselda Amin
[2017-01-05] MEDS: NIFEdipine 10 MG CAPSULE PO SCH ×3 (11:15→21:21)
[2017-01-05] MEDS: DOCUSATE SODIUM 100 MG CAPSULE PO SCH ×2 (11:18→21:22)
[2017-01-05] MEDS: POLYETHYLENE GLYCOL POWDER 17 GM PACK PO SCH (11:18)
[2017-01-05] MEDS: PSYLLIUM POWDER 3.7 GM/PACK PO SCH (11:18)
[2017-01-05] MEDS: ATORVASTATIN 10 MG TABLET PO SCH (11:19)
[2017-01-05] MEDS: AZELASTINE NASAL 137 MCG/SPRAY 30 ML BOTTLE BOTH NARES SCH ×3 (11:19→21:23)
[2017-01-05] MEDS: IRBESARTAN 150 MG TABLET PO SCH (11:20)
--- NOTE | 2017-01-05 11:53 | EKG Report ---
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
--- NOTE | 2017-01-05 13:39 | EKG Report ---
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
[2017-01-05] MEDS: ASPIRIN EC 81 MG TABLET PO SCH (21:22)
[2017-01-06 05:42] LABS: Basophils % 0.5 % (0.0-0.8); Eosinophils # 0.2 10*3/uL (0.0-0.87); Eosinophils % 3.5 % (0.00-10.9); Hematocrit 34.9 VOL% (42.0-52.0); Hemoglobin 11.4 GM/DL (14.0-18.0); Immature Granulocytes % 0.3 %; Immature Granulocytes Absolute 0.02 #; Lymphocytes # 1.8 10*3/uL (1.4-4.0); Lymphocytes % 29.6 % (21.2-54.2); Mean Corpuscular HGB Conc 32.7 GM/DL (32-36); Mean Corpuscular Hemoglobin 29 PG (27-34); Mean Platelet Volume 9.6 FL (9.6-12.0); Monocytes # 0.6 10*3/uL (0.11-0.8); Monocytes % 10.4 % (1.7-12.7); Neutrophils # 3.3 10*3/uL (1.4-7.4); Neutrophils % 55.7 % (38.7-73.9); Platelet Count 171 T/CUMM (130-400); Red Blood Count 3.92 MC/CUMM (3.8-5.5); Red Cell Distribution Width 12.9 % (9.3-17.3)
[2017-01-06 06:14] LABS: Magnesium 2.3 MG/DL (1.8-2.4); Osmolality,Calculated 287.8 MOS/KG (273-304)
--- NOTE | 2017-01-06 07:29 | EKG Report ---
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
--- NOTE | 2017-01-06 08:03 | Electrophysiology Progress Not ---
Assessment and Plan (1) Symptomatic bradycardia Status: Acute Assessment and plan: 81yM with recurrent, symptomatic bradycardia due to intermittent 2AVB. CAD, preserved LVEF. HTN, HLP. 01/05: DDD PM implant from left cephalic access -Discussed post pacemaker implant activity limitations and implant site. -Wear the sling all time for 1 week, keep the implant site dry. -Follow-up with Dr. Patino in one week. -He is still hypertensive, has CAD. Consider switching the short-acting calcium channel lilo and hydralazine to longer acting agents and start beta lilo. Current Visit: Yes (2) History of coronary artery disease Status: Chronic Current Visit: Yes (3) Hypertension Status: Chronic Current Visit: Yes (4) Hyperlipidemia Status: Chronic Current Visit: Yes (5) History of prostate cancer Status: Chronic Current Visit: Yes Electrophysiology Subjective Interval history: He is feeling better since the pacemaker implant. Initially, he was in MVP mode , but felt even single beats with loss of AV synchronous pacing. Switched to DDD. Now, underlying rhythm is sinus, round 60 bpm, with prolonged AV conduction, anterograde Wenckebach still very low, 2:1 conduction with 90 bpm atrial pacing. Removed the pressure dressing. Minimal ecchymosis lateral to the PM site, there is no hematoma. Exam - Constitutional Vitals: Period Temp Pulse Resp BP Sys/Mcmahon Pulse Ox Last 24 Hr 97.8 F-98.8 F 58-65 16-20 129-190/63-87 94-98 General appearance: normal weight - Head Head exam: Present: normal inspection - Eye Eye exam: Absent: conjunctival injection Pupils: Absent: dilated - ENT ENT exam: Present: normal external ear exam - Neck Neck exam: Present: normal inspection - Respiratory Respiratory exam: Present: clear to auscultation bilaterally - Cardiovascular Cardiovascular exam: Present: regular rate and rhythm - GI/Abdominal GI/Abdominal exam: Present: normal bowel sounds - Extremities Exam Extremities exam: Present: normal inspection, normal capillary refill. Absent: edema - Back Exam Back exam: Present: normal inspection - Neurological Exam Neurological exam: Present: alert, oriented X3 - Psychiatric Psychiatric exam: Present: normal affect, normal mood - Skin Skin exam: Present: normal color, warm. Absent: cyanosis Results - Labs CBC & BMP: 01/06/17 05:11 01/06/17 05:11 Lab Results: I have reviewed the past 24 hour labs Specialty Discharge - Follow Up or Referrals - Speciality Discharge Instructions Cardiology Instructions: EP follow up with dr. Patino in 1 week
--- NOTE | 2017-01-06 08:07 | XRay Report ---
XR chest 2V Date: 01/06/2017 4:00 AM History: Lead placement Comparison: 01/05/2017 Technique: PA and lateral chest Findings: The heart is smaller in size with coronary artery calcifications/stents. Stable left subclavian atrioventricular permanent pacemaker. No pneumothorax with reduced atelectasis. Stable mediastinum with degenerative changes. Impression: Stable left subclavian atrioventricular pacemaker with no pneumothorax. Reduced atelectasis. PROCEDURE INTERPRETED AT [facility] DEPARTMENT OF RADIOLOGY Final Report Signed by: Dr. Griselda Amin
[2017-01-06] MEDS: IRBESARTAN 150 MG TABLET PO SCH (08:44)
[2017-01-06] MEDS: PANTOPRAZOLE 40 MG TABLET PO SCH (08:45)
[2017-01-06] MEDS: NIFEdipine 10 MG CAPSULE PO SCH (08:45)
[2017-01-06] MEDS: DOCUSATE SODIUM 100 MG CAPSULE PO SCH (08:45)
[2017-01-06] MEDS: AZELASTINE NASAL 137 MCG/SPRAY 30 ML BOTTLE BOTH NARES SCH (08:46)
[2017-01-06] MEDS: ATORVASTATIN 10 MG TABLET PO SCH (08:46)
[2017-01-06] MEDS: POLYETHYLENE GLYCOL POWDER 17 GM PACK PO SCH (08:52)
[2017-01-06] MEDS: PSYLLIUM POWDER 3.7 GM/PACK PO SCH (08:53)
--- NOTE | 2017-01-06 10:26 | Discharge Summary ---
<Swathi Lynn E - Last Filed: 01/06/17 10:09> Hospital Course - Hospital Course Hospital Course: Mr. Cadena is a 81 year old male who is routinely followed by Dr. Lugo. He presented to the emergency room on 01/03/17 with complaints of "feeling funny," dizziness, feeling cold and clammy, and bradycardia. Mr. Cadena has a history of coronary artery disease, hypertension, bradycardia with heart rates previously in the 50's, hypercholesterolemia, and previous prostate cancer. His EKG on admission showed a sinus rhythm with first degree AV block. The morning following admission, he had some telemetry rhythm strips which appear to be a type II second degree block with heart rates in the 30's. All kash blocking agents were held but he continued to have symptomatic bradycardia. Electrophysiology was consulted and on 01/05/17 he underwent dual chamber pacemaker implantation for sick sinus syndrome, intermittent 2AVB, and symptomatic bradycardia. Post procedure, he has done well. nitially, he was in MVP mode, but felt even single beats with loss of AV synchronous pacing. He was switched to DDD. Now, underlying rhythm is sinus, round 60 bpm, with prolonged AV conduction, anterograde Wenckebach still very low, 2:1 conduction with 90 bpm atrial pacing. Leads are appropriately placed per chest x-ray. Left chest wall incision site dressing is dry and intact. There is no active bleeding or hematoma, minimal ecchymosis lateral to the PM site. He has been seen by electrophysiology this morning and is now able to be discharged. He recently underwent stress testing which was found to be suspicious for ischemia and was scheduled for a left heart catheterization on 01/14/17. Ejection fraction per stress testing was estimated at 49%. Left heart catheterization will be postponed until cleared by Dr. Patino. He will follow up with Dr. Patino in 1 week for pacemaker check and follow up with Dr. Lugo in 2 weeks to discuss rescheduling of heart catheterization. Prior to admission, he had been having issues with uncontrolled hypertension and underwent numerous medication changes. He was previously on Bystolic but this caused his heart rate to drop and the patient and his are hesitant to restart prior to discussing with Dr. Lugo. He will resume his Nifedipine ER 90mg PO nightly and continue Avapro and Hydralazine. He has been instructed to hold hydralazine first for any low blood pressure readings. Reintroduction of beta- lilo will be addressed at his follow-up appointment with Dr. Lugo. He is to keep a blood pressure log and present it at his follow-up with Dr. Lugo. Post pacemaker implant activity limitations have been discussed. He has been instructed to wear the sling at all times for 1 week and to keep the implant site dry. Creatinine is 1.4 at discharge. He will need a BMP in 1 week. - Time spent with patient Time with patient DS: Greater than 30 minutes (due to assessment, plan, and documentation) Diagnosis - Discharge Diagnosis (1) Symptomatic bradycardia Status: Acute (2) Hypertension Status: Chronic (3) History of coronary artery disease Status: Chronic (4) Hyperlipidemia Status: Chronic (5) History of prostate cancer Status: Chronic Specialty Discharge - Follow Up or Referrals Follow up with: Lalo Patino MD [Physician] - 01/14/17 2:10 pm Marcio Lugo MD [Primary Care Provider] - 01/20/17 1:50 pm Donnell Caballero MD [Physician] - 02/26/17 (Keep February 26, [address] Caballero. ) Discharge Plan - Discharge Data Disposition: Disch To Home/Self Care Condition at Discharge: Stable Discharge Diet: heart healthy Activity: other (No lifting with left arm. Wear left arm sling at all times for 1 week.) Hygiene: may shower, keep area(s) dry (Keep implant site dry. ) Weight Bearing at Discharge: full weight bearing Contact your physician if you experience:: fever over 101, Difficulty voiding, Redness or swelling, Nausea/Vomiting, Shortness of breath, Bleeding, pain uncontrolled by pain medications - Discharge Medications New Docusate Sodium Cap [Colace Cap] 100 mg PO BID capsule Continue Azelastine HCl [Azelastine 0.1% Nasal [place]] 1 spray BOTH NARES BID Montelukast Tab [Singulair Tab] 10 mg PO QOTHER DAY Atorvastatin [Lipitor] 5 mg PO DAILY Aspirin [Ecotrin] 81 mg PO BEDTIME Irbesartan 300 mg PO DAILY Azithromycin Tab [Zithromax Tab] 250 mg PO DAILY #6 tablet guaiFENesin ER TAB [Mucinex] 600 mg PO BID #60 tablet Fluticasone 50 Mcg Nasal [place] [Flonase Nasal [place]] 2 spray BOTH NARES DAILY Beclomethasone 80 Mcg Inhaler [Qvar 80 Mcg] 1 puff INH BID hydrALAZINE TAB [Apresoline Tab] 50 mg PO BID #60 tablet Changed Nifedipine [Nifedipine ER] 90 mg PO BEDTIME #0 - Follow Up or Referral Follow Up: Lalo Patino MD [Physician] - 01/14/17 2:10 pm Marcio Lugo MD [Primary Care Provider] - 01/20/17 1:50 pm Donnell Caballero MD [Physician] - 02/26/17 (Keep February 26, [address] Caballero. ) - Forms/Instructions Instructions: Pacemaker (DC) Additional Discharge Instructions: Post pacemaker discharge instructions. Exam - Constitutional Vitals: Period Temp Pulse Resp BP Sys/Mcmahon Pulse Ox Last 24 Hr 97.5 F-98.7 F 58-61 16-20 132-187/63-78 96-97 Exam: General: Present: Appears Well, No Apparent Distress. Pleasant and cooperative. Appears comfortable. HEENT: Present: PERRL, Normocephaly, atraumatic. Mucus Membranes Moist. No jaundice noted. Conjunctiva moist and clear, sclerae anicteric Neck: Present: Supple Neck, Midline Trachea, No Masses, No Bruit Cardiac: Present: Regular Rate and Rhythm, No Murmur Lungs: Present: Clear to auscultation bilaterally, no wheeze, rhonchi, rales. Neuro: Present: Awake, alert, and oriented x3. Moves all extremities well without hemiparesis or paralysis. Grossly Intact. Absent: Resting Tremor, Essential Tremor Abdomen: Present: Soft, Active Bowel Sounds, No Masses, Non-Tender, nondistended. No abdominal bruit or thrill noted. Skin: Present: Clear. Left chest wall pacemaker site without bleeding or hematoma. Dressing dry and intact. Absent: Rash, No skin breakdown. Musculoskeletal: Present: No Fluid Collection, No Pain, Normal Range of Motion Extremities: Present: Normal Gait, No Clubbing, No Cyanosis, Upper Extr. Pulses 2+ bilaterally, Lower Extr. Pulses 2+ bilaterally, trace right lower extremity edema. Capillary refill less than 3 seconds. Discharge Results Procedures and tests throughout hospitalization: 01/05/17 Implants Device: Medtronic Advisa DDDR PM, Model A2DR01, SN: [id number], location: left infraclavicular Right ventricular lead: Medtronic 5076-58, SN: [id number], location: RV septum Right atrial lead: Medtronic 5076-52, SN: [id number], location: RA appendage The implanted system is MRI conditional. Measurements RV bipolar: threshold 0.7 V @ 0.5 ms, R 7.4 mV, impedance 952 Ohm RA bipolar: threshold 2.0 V @ 0.5 ms, P 1.3 mV, [id number] Ohm Device settings DDDR 60/110 Mode switch on Labs on day of discharge: Labs from last 24 hours 01/06/17 01/06/17 05:11 05:11 WBC 6.0 RBC 3.92 Hgb 11.4 L Hct 34.9 L MCV 89.0 MCH 29 MCHC 32.7 RDW 12.9 Plt Count 171 MPV 9.6 Neut % (Auto) 55.7 Lymph % (Auto) 29.6 Dickens % (Auto) 10.4 Eos % (Auto) 3.5 Baso % (Auto) 0.5 Neut # (Auto) 3.3 Lymph # (Auto) 1.8 Dickens # (Auto) 0.6 Eos # (Auto) 0.2 Baso # (Auto) 0.0 Immature Gran % 0.3 Nucleated RBC % 0.0 Immature Gran # 0.02 Nucleated RBCs # 0.00 Sodium 144 Potassium 4.0 Chloride 110 H Carbon Dioxide 23 Anion Gap 15.0 BUN 18 Creatinine 1.40 H GFR Calculation 54 BUN/Creatinine Ratio 12.00 Glucose 93 Calculated Osmolality 287.8 Calcium 8.0 L Magnesium 2.3 DS: Provider Date of admission: 01/03/17 22:36 Primary care physician: Marcio Lugo MD Attending physician on admission: Marcio Lugo MD Consults: 01/04/17 11:12 Consult to Pharmacy [CONS] Routine Reason for Pharmacy Consult: Adjust Meds Renal Funct 01/04/17 17:39 Consult to Physician [CONS] Routine Comment: eval for PM Consulting Provider: Lalo Patino Discharging clinician: TRUPTI Ron Expected date of discharge: 01/06/17 <Ibrahima Ye - Last Filed: 01/06/17 21:24> Diagnosis - Discharge Diagnosis (1) Symptomatic bradycardia Status: Acute (2) Bradycardia Status: Acute (3) History of coronary artery disease Status: Chronic (4) Hyperlipidemia Status: Chronic
[2017-01-06 11:23] VITALS: BP 187/78
== END 2017-01-06 13:00 | disposition home or self-care (01) | DRG 244 ==
LOC: N.ED 20:45 → N.EDINP 22:36 → N.TELEN 23:39
PROVIDERS: ADMIT Internal Medicine Interventional Cardiology; ATTEND Internal Medicine Interventional Cardiology

== ENCOUNTER 2019-08-09 09:00 | Inpatient (IN) ==
[~2019-08-09 09:00] MED LIST: BISOPROLOL 5 MG TABLET PO SCH; CEFUROXIME INJ 1,500 MG in SYRINGE 1 EACH IV ONE; DEXTROSE 10% 25 GM/250 ML BAG IV PRN; GLUCAGON 1 MG VIAL IM PRN; NITROGLYCERIN SL 0.4 MG TABLET SL PRN
[2019-08-09] MEDS ORDERED: MONTELUKAST 10 MG TABLET PO SCH (12:00)
[2019-08-09 12:52] LABS: Basophils % 0.2 % (0.0-0.8); Eosinophils # 0.1 10*3/uL (0.0-0.87); Eosinophils % 0.7 % (0.00-10.9); Hematocrit 41.7 VOL% (42.0-52.0); Hemoglobin 13.6 GM/DL (14.0-18.0); Immature Granulocytes % 0.6 %; Immature Granulocytes Absolute 0.06 #; Lymphocytes # 1.1 10*3/uL (1.4-4.0); Lymphocytes % 10.9 % (21.2-54.2); Mean Corpuscular HGB Conc 32.6 GM/DL (32-36); Mean Corpuscular Volume 91.6 FL (87-102); Mean Platelet Volume 9.9 FL (9.6-12.0); Monocytes % 5.7 % (1.7-12.7); Neutrophils % 81.9 % (38.7-73.9); Platelet Count 182 T/CUMM (130-400); Red Blood Count 4.55 MC/CUMM (3.8-5.5); Red Cell Distribution Width 13.1 % (9.3-17.3); White Blood Count 10.1 T/CUMM (4-12)
[2019-08-09 13:05] LABS: Albumin 4.1 G/DL (3.4-5.0); Bilirubin,Total 1.1 MG/DL (0.2-1.0); Calcium 8.8 MG/DL (8.5-10.1); Osmolality,Calculated 267.4 MOS/KG (273-304); Total Protein 6.5 G/DL (6.4-8.3)
[2019-08-09] MEDS: SODIUM CHLORIDE 0.9% 1,000 ML IV SCH (14:40)
[2019-08-09] MEDS: LOSARTAN 50 MG TABLET PO SCH (14:41)
[2019-08-09] MEDS: AZELASTINE NASAL 137 MCG/SPRAY 30 ML BOTTLE BOTH NARES SCH ×2 (14:41→21:32)
[2019-08-09] MEDS: FLUTICASONE 50 MCG NASAL SPRAY 16 GM BOTTLE BOTH NARES SCH ×2 (14:41→21:32)
[2019-08-09] MEDS: hydroCHLOROthiazide 12.5 MG CAPSULE PO SCH (14:42)
[2019-08-09] MEDS: predniSONE 5 MG TABLET PO SCH ×3 (14:43→21:34)
[2019-08-09] MEDS: BECLOMETHASONE 80 MCG/PUFF INHALER 8.7 GM INH SCH ×2 (14:44→21:33)
[2019-08-09 15:40] LABS: Pt O2 Delivery Device Room Air
[2019-08-09 15:41] LABS: ABG HCO3 26.2 MMOL/L (20-26); ABG Oxygen Saturation 98.1 % (95-100); ABG PCO2 35.8 MM HG (35-48); ABG PO2 94.6 MM HG (80-95); ABG TCO2 22.3 MMOL/L (23-27)
[2019-08-09] MEDS: CHLORHEXIDINE 4% SOLN 118 ML BOTTLE TOP SCH ×3 (16:00→21:32)
[2019-08-09] MEDS: CHLORHEXIDINE 0.12% ORAL RINSE 60 ML BOTTLE SWISH/SPIT SCH ×2 (17:11→21:23)
[2019-08-09] MEDS ORDERED: ATORVASTATIN 40 MG TABLET PO SCH (21:00)
[2019-08-09] MEDS ORDERED: ASPIRIN EC 81 MG TABLET PO SCH (21:00)
[2019-08-09] MEDS ORDERED: BISOPROLOL 5 MG TABLET PO SCH (22:30)
[2019-08-10] MEDS ORDERED: PAPAVERINE 60 MG/2 ML VIAL ONE ×2 (04:22→05:43)
[2019-08-10] MEDS ORDERED: VANCOMYCIN 1,000 MG VIAL ONE ×2 (04:23→06:55)
[2019-08-10] MEDS ORDERED: VANCOMYCIN 500 MG VIAL ONE (04:23)
[2019-08-10] MEDS: CHLORHEXIDINE 4% SOLN 118 ML BOTTLE TOP SCH (04:34)
[2019-08-10] MEDS ORDERED: DIAZEPAM 5 MG TABLET PO ONE (06:00)
[2019-08-10] MEDS ORDERED: SUFentanil 250 MCG/5 ML AMP ONE (06:00)
[2019-08-10] MEDS ORDERED: AMINOCAPROIC ACID 5,000 MG/20 ML VIAL ONE (06:00)
[2019-08-10] MEDS ORDERED: FAMOTIDINE 20 MG TABLET PO ONE (06:00)
[2019-08-10] MEDS ORDERED: PHENYLEPHRINE 1 MG/10 ML SYRINGE IV ONE (06:00)
[2019-08-10] MEDS ORDERED: MIDAZOLAM 10 MG/2 ML VIAL ONE ×2 (06:00)
[2019-08-10] MEDS ORDERED: CEFUROXIME INJ 1,500 MG in SYRINGE 1 EACH IV ONE (06:30)
[2019-08-10 07:38] LABS: ABG Base Excess -1.4 MMOL/L (-2.5-2.5); ABG HCO3 23.3 MMOL/L (20-26); ABG PCO2 44.1 MM HG (35-48); ABG PH 7.351 (7.35-7.45); ABG TCO2 21.7 MMOL/L (23-27); Glucose Heart Surgery 104 MG/DL (74-106); Hematocrit Heart Surgery 36.4 PERCENT (42-52); Hemoglobin Heart Surgery 11.8 G/DL (14.0-18.0); Ionized Calcium Arterial 1.17 MMOL/L (1.21-1.46); PCO2 Patient Temp Arterial 44.1 MMHG; PH Patient Temp Arterial 7.351; Patient Temperature 37 CELCIUS; Potassium Heart/CVR 3.8 MMOL/L (3.5-5.1); Sodium Heart/CVR 128 MMOL/L (135-145)
[2019-08-10] MEDS ORDERED: VANCOMYCIN INJ 1,000 MG in SODIUM CHLORIDE 0.9% 250 ML IV ONE (08:06)
[2019-08-10 08:21] LABS: Apearance,Urine CLEAR (Clear); Bilirubin,Urine Negative (Negative); Blood, Urine Negative (Negative); Glucose,Urine (UA) Negative (Negative); Ketones,Urine Negative (Negative); Mucus,Urine Occasional /LPF (Occasional); Nitrite,Urine Negative (Negative); Protein,Urine Negative; Urine Color Yellow (Yellow); Urine Specific Gravity 1.016 (1.001-1.035); Urine Urobilinogen < 2.0 EU/DL (0.2-1.0)
[2019-08-10] MEDS ORDERED: PHENYLEPHRINE DRIP 20 MG/250 ML PREMIX IV ONE (09:07)
[2019-08-10] MEDS ORDERED: CALCIUM CHLORIDE 1,000 MG/10 ML VIAL IV ONE (09:07)
[2019-08-10] MEDS ORDERED: HEPARIN/NACL 0.9% 2 UNITS/ML 500 ML IV ONE (09:07)
[2019-08-10] MEDS ORDERED: NITROGLYCERIN DRIP 50 MG/250 ML BOTTLE IV ONE (09:07)
[2019-08-10] MEDS ORDERED: NITROPRUSSIDE 50 MG/2 ML VIAL ONE (09:07)
[2019-08-10] MEDS ORDERED: EPINEPHrine 1 MG/10 ML SYRINGE ONE (09:08)
[2019-08-10] MEDS ORDERED: CALCIUM CHLORIDE 1,000 MG/10 ML SYRINGE IV ONE (09:08)
[2019-08-10] MEDS ORDERED: POTASSIUM CHLORIDE RIDER 100 ML IV ONE ×2 (09:08→12:12)
[2019-08-10] MEDS ORDERED: PHENYLEPHRINE DRIP 40 MG/250 ML PREMIX IV ONE (09:08)
[2019-08-10] MEDS ORDERED: SODIUM BICARBONATE 50 MEQ/50 ML VIAL IV ONE ×2 (09:08→10:04)
[2019-08-10 09:12] LABS: Hematocrit Heart Surgery 25.1 PERCENT (42-52); Hemoglobin Heart Surgery 8.1 G/DL (14.0-18.0); PCO2 Patient Temp Venous 30.3 MM HG; PH Patient Temp Venous 7.493; PO2 Patient Temp Venous 52.4 MM HG; Potassium Heart/CVR 4.2 MMOL/L (3.5-5.1); VBG Base Excess 0.5 MEQ/L (0-4); VBG HCO3 24.8 MEQ/L (24-28); VBG PH 7.449; VBG PO2 63.6 MMHG (17-40)
[2019-08-10] MEDS: LOSARTAN 50 MG TABLET PO SCH (09:35)
[2019-08-10] MEDS: FLUTICASONE 50 MCG NASAL SPRAY 16 GM BOTTLE BOTH NARES SCH (09:35)
[2019-08-10] MEDS: BECLOMETHASONE 80 MCG/PUFF INHALER 8.7 GM INH SCH (09:35)
[2019-08-10] MEDS: SODIUM CHLORIDE 0.9% 1,000 ML IV SCH (09:35)
[2019-08-10] MEDS: AZELASTINE NASAL 137 MCG/SPRAY 30 ML BOTTLE BOTH NARES SCH (09:35)
[2019-08-10] MEDS: predniSONE 5 MG TABLET PO SCH (09:35)
[2019-08-10] MEDS: CHLORHEXIDINE 0.12% ORAL RINSE 60 ML BOTTLE SWISH/SPIT SCH ×2 (09:35→21:06)
[2019-08-10] MEDS: hydroCHLOROthiazide 12.5 MG CAPSULE PO SCH (09:35)
[2019-08-10 09:45] LABS: Hematocrit Heart Surgery 26.3 PERCENT (42-52); Hemoglobin Heart Surgery 8.4 G/DL (14.0-18.0); PCO2 Patient Temp Venous 33.2 MM HG; PH Patient Temp Venous 7.473; PO2 Patient Temp Venous 46.8 MM HG; Potassium Heart/CVR 4.1 MMOL/L (3.5-5.1); VBG HCO3 25.2 MEQ/L (24-28); VBG Oxygen Saturation 85.4 %; VBG PCO2 33.2 MMHG (41-51); VBG PH 7.473; VBG PO2 46.8 MMHG (17-40)
[2019-08-10] MEDS ORDERED: ALBUMIN 25% 25 GM/100 ML VIAL IV ONE (10:04)
[2019-08-10] MEDS ORDERED: PROTAMINE SULFATE 250 MG/25 ML VIAL IV ONE (10:04)
[2019-08-10] MEDS ORDERED: LIDOCAINE 2% 5 ML VIAL ONE ×2 (10:04→11:19)
[2019-08-10] MEDS ORDERED: DEXTROSE 5% KCL 20 MEQ 20 MEQ/1,000 ML BAG IV ONE (10:04)
[2019-08-10] MEDS ORDERED: MANNITOL 100 GM/500 ML BAG IV ONE (10:04)
[2019-08-10] MEDS ORDERED: methylPREDNISolone SOD SUC 1,000 MG/8 ML VIAL ONE (10:05)
[2019-08-10] MEDS ORDERED: HEPARIN 10,000 UNIT/10 ML VIAL ONE (10:05)
[2019-08-10] MEDS ORDERED: FUROSEMIDE 20 MG/2 ML VIAL ONE (10:05)
[2019-08-10] MEDS ORDERED: ALBUMIN 5% 12.5 GM/250 ML VIAL IV ONE ×2 (10:14→10:15)
[2019-08-10 10:15] LABS: ABG Base Excess -0.9 MMOL/L (-2.5-2.5); ABG HCO3 23.7 MMOL/L (20-26); ABG PCO2 36.9 MM HG (35-48); ABG PH 7.411 (7.35-7.45); ABG TCO2 21.6 MMOL/L (23-27); Glucose Heart Surgery 192 MG/DL (74-106); Hematocrit Heart Surgery 27.7 PERCENT (42-52); Hemoglobin Heart Surgery 8.9 G/DL (14.0-18.0); Ionized Calcium Arterial 1.21 MMOL/L (1.21-1.46); PCO2 Patient Temp Arterial 36.9 MMHG; PH Patient Temp Arterial 7.411; Patient Temperature 37 CELCIUS; Potassium Heart/CVR 3.6 MMOL/L (3.5-5.1); Sodium Heart/CVR 123 MMOL/L (135-145)
[2019-08-10] MEDS ORDERED: PROTAMINE SULFATE 50 MG/5 ML VIAL IV ONE ×2 (11:10→11:18)
[2019-08-10] MEDS ORDERED: VECURONIUM 10 MG VIAL IV ONE (11:19)
[2019-08-10] MEDS ORDERED: ETOMIDATE 40 MG/20 ML VIAL IV ONE (11:19)
[2019-08-10] MEDS ORDERED: SODIUM CHLORIDE 0.9% 1,000 ML IV ONE (11:19)
[2019-08-10] MEDS ORDERED: LACTATED RINGERS 1,000 ML IV ONE (11:19)
[2019-08-10] MEDS ORDERED: SEVOFLURANE 1 UNIT/15 MINUTE INH ONE (11:19)
[2019-08-10] MEDS ORDERED: SODIUM CHLORIDE 0.9% 500 ML IV ONE (11:19)
[2019-08-10] MEDS ORDERED: MAGNESIUM SULF RIDER 2 GM in PREMIX 1 EACH IV PRN (11:21)
[2019-08-10] MEDS ORDERED: MIDAZOLAM 2 MG/2 ML VIAL IV PRN (11:21)
[2019-08-10] MEDS ORDERED: MIDAZOLAM 10 MG/2 ML VIAL IV PRN (11:21)
[2019-08-10] MEDS ORDERED: ONDANSETRON 4 MG/2 ML VIAL IV PRN (11:21)
[2019-08-10] MEDS ORDERED: CALCIUM CHLORIDE 1,000 MG/10 ML SYRINGE IV PRN (11:21)
[2019-08-10] MEDS ORDERED: MORPHINE 10 MG/1 ML VIAL IV PRN (11:21)
[2019-08-10] MEDS ORDERED: VECURONIUM 10 MG VIAL IV PRN ×2 (11:21)
[2019-08-10] MEDS ORDERED: ACETAMINOPHEN 650 MG SUPP RECTAL PRN (11:21)
[2019-08-10] MEDS ORDERED: POTASSIUM CHLORIDE RIDER 10 MEQ in PREMIX 1 EACH IV PRN (11:21)
[2019-08-10] MEDS ORDERED: PHENYLEPHRINE DRIP 40 MG/250 ML PREMIX IV PRN (11:21)
[2019-08-10] MEDS ORDERED: LACTATED RINGERS 250 ML IV PRN (11:21)
[2019-08-10] MEDS ORDERED: INSULIN REGULAR 100 UNIT/ML IV PRN (11:21)
[2019-08-10] MEDS ORDERED: NITROPRUSSIDE 100 MG in DEXTROSE 5% 250 ML IV PRN (11:21)
[2019-08-10] MEDS ORDERED: MAGNESIUM SULF RIDER 4 GM in PREMIX 1 EACH IV PRN (11:21)
[2019-08-10] MEDS ORDERED: DEXTROSE 10% 250 ML BAG IV PRN ×2 (11:21)
[2019-08-10] MEDS ORDERED: MORPHINE 4 MG/1 ML VIAL IV PRN (11:21)
[2019-08-10] MEDS ORDERED: INSULIN REGULAR DRIP 100 ML IV SCH (11:30)
[2019-08-10] MEDS ORDERED: SODIUM CHLORIDE 0.45% 1,000 ML IV SCH ×2 (11:30)
[2019-08-10 11:40] LABS: ABG Base Excess -0.9 MMOL/L (-2.5-2.5); ABG HCO3 23.3 MMOL/L (20-26); ABG Oxygen Saturation 97.9 % (95-100); ABG PCO2 36.5 MM HG (35-48); ABG PH 7.422 (7.35-7.45); ABG PO2 118.7 MM HG (80-95); ABG TCO2 24.4 MMOL/L (23-27); Glucose Heart Surgery 144 MG/DL (74-106); Hemoglobin Heart Surgery 10.4 G/DL (14.0-18.0); Potassium Heart/CVR 3.2 MMOL/L (3.5-5.1)
[2019-08-10] MEDS: POTASSIUM CHLORIDE RIDER 20 MEQ in PREMIX 1 EACH IV PRN ×3 (11:45→21:30)
[2019-08-10 11:47] LABS: Basophils % 0.2 % (0.0-0.8); Eosinophils # 0.1 10*3/uL (0.0-0.87); Eosinophils % 0.9 % (0.00-10.9); Hematocrit 29.3 VOL% (42.0-52.0); Hemoglobin 9.6 GM/DL (14.0-18.0); Immature Granulocytes % 1.1 %; Lymphocytes # 0.6 10*3/uL (1.4-4.0); Lymphocytes % 6.3 % (21.2-54.2); Mean Corpuscular HGB Conc 32.8 GM/DL (32-36); Mean Corpuscular Volume 89.9 FL (87-102); Mean Platelet Volume 9.8 FL (9.6-12.0); Monocytes % 3.8 % (1.7-12.7); Neutrophils % 87.7 % (38.7-73.9); Red Blood Count 3.26 MC/CUMM (3.8-5.5); Red Cell Distribution Width 13.1 % (9.3-17.3); White Blood Count 8.9 T/CUMM (4-12)
[2019-08-10 11:48] LABS: Platelet Count 127 T/CUMM (130-400)
[2019-08-10 11:53] LABS: INR 1.2; PT Patient Result 13.3 SECS (9.6-12.2); Partial Thromboplastin Time 26.8 SECS (20.8-36.0)
[2019-08-10 12:16] LABS: CKMB % 7.4 %
[2019-08-10 12:17] LABS: Troponin I 4.2 NG/ML (0.00-0.045)
[2019-08-10 12:20] LABS: Albumin 3.1 G/DL (3.4-5.0); Bilirubin,Total 1.3 MG/DL (0.2-1.0); Calcium 8.2 MG/DL (8.5-10.1); Osmolality,Calculated 272.2 MOS/KG (273-304); Total Protein 4.6 G/DL (6.4-8.3)
[2019-08-10] MEDS: ALBUMIN 5% 12.5 GM in PREMIX 1 EACH IV PRN ×4 (13:27→21:44)
[2019-08-10] MEDS: LACTATED RINGERS 1,000 ML IV PRN ×3 (13:30→22:01)
[2019-08-10 13:31] LABS: ABG Base Excess -1.4 MMOL/L (-2.5-2.5); ABG HCO3 23.2 MMOL/L (20-26); ABG Oxygen Saturation 97.4 % (95-100); ABG PCO2 37.6 MM HG (35-48); ABG PH 7.397 (7.35-7.45); ABG PO2 91.3 MM HG (80-95); ABG TCO2 20.8 MMOL/L (23-27); Glucose Heart Surgery 141 MG/DL (74-106); Hematocrit Heart Surgery 33.5 PERCENT (42-52); Hemoglobin Heart Surgery 10.9 G/DL (14.0-18.0); Potassium Heart/CVR 4.7 MMOL/L (3.5-5.1)
[2019-08-10] MEDS: INSULIN REGULAR 100 UNIT/ML IV ONE ×2 (13:31→15:33)
[2019-08-10 14:52] LABS: ABG Base Excess -2.2 MMOL/L (-2.5-2.5); ABG HCO3 22.6 MMOL/L (20-26); ABG Oxygen Saturation 98.9 % (95-100); ABG PCO2 38.7 MM HG (35-48); ABG PH 7.376 (7.35-7.45); ABG TCO2 20.4 MMOL/L (23-27); Glucose Heart Surgery 175 MG/DL (74-106); Hematocrit Heart Surgery 33.6 PERCENT (42-52); Hemoglobin Heart Surgery 10.9 G/DL (14.0-18.0)
[2019-08-10 17:28] LABS: ABG Base Excess -3.3 MMOL/L (-2.5-2.5); ABG HCO3 21.7 MMOL/L (20-26); ABG Oxygen Saturation 98.8 % (95-100); ABG PCO2 37.5 MM HG (35-48); ABG PH 7.369 (7.35-7.45); ABG TCO2 19.6 MMOL/L (23-27); Glucose Heart Surgery 187 MG/DL (74-106); Hematocrit Heart Surgery 32.6 PERCENT (42-52); Hemoglobin Heart Surgery 10.5 G/DL (14.0-18.0); Potassium Heart/CVR 3.8 MMOL/L (3.5-5.1)
[2019-08-10] MEDS ORDERED: FUROSEMIDE 40 MG/4 ML VIAL IV ONE (20:27)
[2019-08-10 21:00] LABS: ABG Base Excess -3.1 MMOL/L (-2.5-2.5); ABG HCO3 21.9 MMOL/L (20-26); ABG Oxygen Saturation 98.7 % (95-100); ABG PCO2 35.4 MM HG (35-48); ABG PH 7.389 (7.35-7.45); ABG TCO2 19.4 MMOL/L (23-27); Glucose Heart Surgery 127 MG/DL (74-106); Hematocrit Heart Surgery 31.3 PERCENT (42-52); Hemoglobin Heart Surgery 10.1 G/DL (14.0-18.0); Potassium Heart/CVR 3.9 MMOL/L (3.5-5.1)
[2019-08-10 21:20] LABS: CKMB % 6.9 %
[2019-08-10 21:27] LABS: Troponin I 5.45 NG/ML (0.00-0.045)
[2019-08-10] MEDS ORDERED: VANCOMYCIN INJ 1,000 MG in SODIUM CHLORIDE 0.9% 250 ML IV SCH (23:06)
[2019-08-10 23:34] LABS: ABG Base Excess -0.8 MMOL/L (-2.5-2.5); ABG HCO3 23.8 MMOL/L (20-26); ABG Oxygen Saturation 99.4 % (95-100); ABG PCO2 26.9 MM HG (35-48); ABG PH 7.509 (7.35-7.45); ABG TCO2 19.5 MMOL/L (23-27); Glucose Heart Surgery 118 MG/DL (74-106); Hemoglobin Heart Surgery 9.4 G/DL (14.0-18.0); Potassium Heart/CVR 4.1 MMOL/L (3.5-5.1)
[2019-08-11] MEDS: INSULIN REGULAR 100 UNIT/ML SUBCUT SCH ×3 (00:07→07:54)
[2019-08-11 00:18] LABS: ABG Base Excess -1.8 MMOL/L (-2.5-2.5); ABG HCO3 22.4 MMOL/L (20-26); ABG Oxygen Saturation 98.6 % (95-100); ABG PCO2 35.7 MM HG (35-48); ABG PH 7.415 (7.35-7.45); ABG PO2 150.5 MM HG (80-95); ABG TCO2 23.5 MMOL/L (23-27); Glucose Heart Surgery 126 MG/DL (74-106); Potassium Heart/CVR 3.8 MMOL/L (3.5-5.1)
[2019-08-11 03:10] LABS: ABG Base Excess -1.2 MMOL/L (-2.5-2.5); ABG HCO3 23.1 MMOL/L (20-26); ABG Oxygen Saturation 97.4 % (95-100); ABG PCO2 37.1 MM HG (35-48); ABG PH 7.412 (7.35-7.45); ABG PO2 104.4 MM HG (80-95); ABG TCO2 24.2 MMOL/L (23-27); Glucose Heart Surgery 134 MG/DL (74-106); Hemoglobin Heart Surgery 9.8 G/DL (14.0-18.0)
[2019-08-11 03:23] LABS: Hematocrit 27.3 VOL% (42.0-52.0); Hemoglobin 8.8 GM/DL (14.0-18.0); Immature Granulocytes % 0.6 %; Immature Granulocytes Absolute 0.06 #; Lymphocytes # 0.4 10*3/uL (1.4-4.0); Lymphocytes % 3.5 % (21.2-54.2); Mean Corpuscular HGB Conc 32.2 GM/DL (32-36); Mean Corpuscular Volume 90.1 FL (87-102); Mean Platelet Volume 10.4 FL (9.6-12.0); Monocytes % 3.5 % (1.7-12.7); Neutrophils % 92.4 % (38.7-73.9); Platelet Count 105 T/CUMM (130-400); Red Blood Count 3.03 MC/CUMM (3.8-5.5); Red Cell Distribution Width 13.5 % (9.3-17.3); White Blood Count 9.9 T/CUMM (4-12)
[2019-08-11 03:38] LABS: Albumin 3.5 G/DL (3.4-5.0); Bilirubin,Direct 0.44 MG/DL (0.0-0.20); Bilirubin,Total 1.3 MG/DL (0.2-1.0); Calcium 7.8 MG/DL (8.5-10.1); Total Protein 4.9 G/DL (6.4-8.3)
[2019-08-11 03:41] LABS: CKMB % 4.8 %
[2019-08-11 03:45] LABS: Troponin I 4.55 NG/ML (0.00-0.045)
[2019-08-11 04:04] LABS: Lymphocytes 3 % (20-55); Segmented Neutrophils 95 % (50-85); Total Cells Counted 100
[2019-08-11 04:05] LABS: Ovalocytes Slight; Platelet Estimate Adequate; Schistocytes Few
[2019-08-11 04:07] LABS: Hypochromasia Slight
[2019-08-11 05:49] LABS: ABG Base Excess -2.5 MMOL/L (-2.5-2.5); ABG HCO3 22.3 MMOL/L (20-26); ABG Oxygen Saturation 98.1 % (95-100); ABG PCO2 35.4 MM HG (35-48); ABG PH 7.398 (7.35-7.45); ABG TCO2 19.7 MMOL/L (23-27); Glucose Heart Surgery 144 MG/DL (74-106); Hematocrit Heart Surgery 32.6 PERCENT (42-52); Hemoglobin Heart Surgery 10.5 G/DL (14.0-18.0); Potassium Heart/CVR 4.3 MMOL/L (3.5-5.1)
[2019-08-11] MEDS: predniSONE 5 MG TABLET PO SCH ×2 (08:23→20:48)
[2019-08-11] MEDS: FLUTICASONE 50 MCG NASAL SPRAY 16 GM BOTTLE BOTH NARES SCH ×2 (08:23→21:08)
[2019-08-11] MEDS: BISOPROLOL 5 MG TABLET PO SCH (08:24)
[2019-08-11] MEDS: CHLORHEXIDINE 0.12% ORAL RINSE 60 ML BOTTLE SWISH/SPIT SCH ×3 (08:24→21:09)
[2019-08-11] MEDS ORDERED: POTASSIUM CHLORIDE 20 MEQ TABLET PO PRN (08:39)
[2019-08-11] MEDS ORDERED: ONDANSETRON 4 MG/2 ML VIAL IV PRN (08:39)
[2019-08-11] MEDS ORDERED: ZALEPLON 5 MG CAPSULE PO PRN (08:39)
[2019-08-11] MEDS ORDERED: MAGNESIUM SULF RIDER 2 GM in PREMIX 1 EACH IV PRN (08:39)
[2019-08-11] MEDS ORDERED: ALUMINUM/MAGNES/SIMETH MAX STR 30 ML UDCUP PO PRN (08:39)
[2019-08-11] MEDS ORDERED: MAGNESIUM SULF RIDER 4 GM in PREMIX 1 EACH IV PRN (08:39)
[2019-08-11] MEDS ORDERED: GLUCAGON 1 MG VIAL IM PRN ×2 (08:39)
[2019-08-11] MEDS ORDERED: oxyCODONE/ACETAMINOPHEN 5-325 MG TABLET PO PRN (08:39)
[2019-08-11] MEDS ORDERED: DEXTROSE 10% 25 GM/250 ML BAG IV PRN ×2 (08:39→09:30)
[2019-08-11] MEDS ORDERED: DEXTROSE 50% 25 GM/50 ML VIAL IV PRN (08:39)
[2019-08-11] MEDS ORDERED: ACETAMINOPHEN 325 MG TABLET PO PRN (08:39)
[2019-08-11] MEDS ORDERED: MAGNESIUM HYDROXIDE SUSP 30 ML UDCUP PO PRN (08:39)
[2019-08-11] MEDS ORDERED: hydroCHLOROthiazide 12.5 MG CAPSULE PO SCH (09:00)
[2019-08-11] MEDS ORDERED: LOSARTAN 50 MG TABLET PO SCH (09:00)
[2019-08-11] MEDS: AZELASTINE NASAL 137 MCG/SPRAY 30 ML BOTTLE BOTH NARES SCH ×2 (10:08→21:05)
[2019-08-11] MEDS: PANTOPRAZOLE 40 MG TABLET PO SCH (10:08)
[2019-08-11] MEDS: FERROUS SULFATE 325 MG TABLET PO SCH (10:08)
[2019-08-11] MEDS: DOCUSATE SODIUM 100 MG CAPSULE PO SCH (10:08)
[2019-08-11] MEDS: BECLOMETHASONE 80 MCG/PUFF INHALER 8.7 GM INH SCH ×2 (10:09→21:06)
[2019-08-11] MEDS: SODIUM CHLOR 0.45% KCL 20 MEQ 20 MEQ/1,000 ML BAG IV SCH (12:32)
[2019-08-11] MEDS: KETOROLAC 30 MG/1 ML VIAL IV SCH ×3 (12:32→21:03)
[2019-08-11] MEDS: MONTELUKAST 10 MG TABLET PO SCH (13:35)
[2019-08-11] MEDS: ASCORBIC ACID 500 MG TABLET PO SCH ×2 (18:47→20:42)
[2019-08-11] MEDS: ASPIRIN EC 81 MG TABLET PO SCH (20:42)
[2019-08-11] MEDS: ATORVASTATIN 40 MG TABLET PO SCH (20:42)
[2019-08-12] MEDS: KETOROLAC 30 MG/1 ML VIAL IV SCH ×2 (02:31→17:10)
[2019-08-12 04:46] LABS: Basophils % 0.1 % (0.0-0.8); Hematocrit 32.9 VOL% (42.0-52.0); Hemoglobin 10.7 GM/DL (14.0-18.0); Immature Granulocytes % 1.2 %; Immature Granulocytes Absolute 0.18 #; Lymphocytes # 0.7 10*3/uL (1.4-4.0); Lymphocytes % 4.5 % (21.2-54.2); Mean Corpuscular HGB Conc 32.5 GM/DL (32-36); Mean Corpuscular Volume 91.1 FL (87-102); Mean Platelet Volume 11.1 FL (9.6-12.0); Monocytes % 6.8 % (1.7-12.7); Neutrophils % 87.4 % (38.7-73.9); Platelet Count 109 T/CUMM (130-400); Red Blood Count 3.61 MC/CUMM (3.8-5.5); Red Cell Distribution Width 14.2 % (9.3-17.3); White Blood Count 15.1 T/CUMM (4-12)
[2019-08-12 05:09] LABS: Alanine Aminotransferase 33 U/L (16-61); Albumin 3.7 G/DL (3.4-5.0); Alkaline Phosphatase 37 U/L (45-117); Aspartate Amino Transferase 18 U/L (0-37); Bilirubin,Indirect 0.9 MG/DL (0.0-1.0); Blood Urea Nitrogen 48 MG/DL (7-18); Calcium 8.6 MG/DL (8.5-10.1); Estimated Glom Filtration Rate 30 ML/MIN; Glucose 126 MG/DL (74-106); Osmolality,Calculated 284.1 MOS/KG (273-304); Total Protein 5.6 G/DL (6.4-8.3)
[2019-08-12 05:10] LABS: Band Neutrophils 2 % (0-10); Lymphocytes 4 % (20-55); Segmented Neutrophils 90 % (50-85); Total Cells Counted 100
[2019-08-12 05:11] LABS: Anisocytosis 1+; Platelet Estimate Adequate
[2019-08-12] MEDS ORDERED: FUROSEMIDE 40 MG/4 ML VIAL IV ONE (06:00)
[2019-08-12] MEDS: SODIUM CHLOR 0.45% KCL 20 MEQ 20 MEQ/1,000 ML BAG IV SCH (10:01)
[2019-08-12] MEDS: predniSONE 5 MG TABLET PO SCH ×2 (10:02→21:58)
[2019-08-12] MEDS: FERROUS SULFATE 325 MG TABLET PO SCH (10:02)
[2019-08-12] MEDS: BISOPROLOL 5 MG TABLET PO SCH (10:02)
[2019-08-12] MEDS: PANTOPRAZOLE 40 MG TABLET PO SCH (10:02)
[2019-08-12] MEDS: ASCORBIC ACID 500 MG TABLET PO SCH ×2 (10:02→21:58)
[2019-08-12] MEDS: DOCUSATE SODIUM 100 MG CAPSULE PO SCH (10:02)
[2019-08-12] MEDS: CHLORHEXIDINE 0.12% ORAL RINSE 60 ML BOTTLE SWISH/SPIT SCH ×2 (10:03→22:00)
[2019-08-12] MEDS: AZELASTINE NASAL 137 MCG/SPRAY 30 ML BOTTLE BOTH NARES SCH ×2 (10:03→22:02)
[2019-08-12] MEDS: BECLOMETHASONE 80 MCG/PUFF INHALER 8.7 GM INH SCH ×2 (10:03→22:01)
[2019-08-12] MEDS: FLUTICASONE 50 MCG NASAL SPRAY 16 GM BOTTLE BOTH NARES SCH ×2 (10:03→22:02)
[2019-08-12] MEDS: MONTELUKAST 10 MG TABLET PO SCH (12:03)
[2019-08-12] MEDS: ATORVASTATIN 40 MG TABLET PO SCH (21:58)
[2019-08-12] MEDS: ASPIRIN EC 81 MG TABLET PO SCH (21:58)
[2019-08-13 06:35] LABS: Basophils % 0.1 % (0.0-0.8); Eosinophils % 0.1 % (0.00-10.9); Hemoglobin 10.4 GM/DL (14.0-18.0); Immature Granulocytes % 1.2 %; Immature Granulocytes Absolute 0.13 #; Lymphocytes # 0.8 10*3/uL (1.4-4.0); Lymphocytes % 7.4 % (21.2-54.2); Mean Corpuscular HGB Conc 32.5 GM/DL (32-36); Mean Corpuscular Volume 91.7 FL (87-102); Mean Platelet Volume 10.3 FL (9.6-12.0); Monocytes % 7.6 % (1.7-12.7); Neutrophils % 83.6 % (38.7-73.9); Platelet Count 97 T/CUMM (130-400); Red Blood Count 3.49 MC/CUMM (3.8-5.5); Red Cell Distribution Width 13.8 % (9.3-17.3); White Blood Count 11.1 T/CUMM (4-12)
[2019-08-13 06:51] LABS: Alanine Aminotransferase 31 U/L (16-61); Albumin 3.2 G/DL (3.4-5.0); Alkaline Phosphatase 36 U/L (45-117); Aspartate Amino Transferase 15 U/L (0-37); Bilirubin,Indirect 0.7 MG/DL (0.0-1.0); Blood Urea Nitrogen 50 MG/DL (7-18); Calcium 7.8 MG/DL (8.5-10.1); Estimated Glom Filtration Rate 40 ML/MIN; Glucose 102 MG/DL (74-106); Osmolality,Calculated 278.4 MOS/KG (273-304)
[2019-08-13] MEDS: ASCORBIC ACID 500 MG TABLET PO SCH ×2 (09:54→21:16)
[2019-08-13] MEDS: BISOPROLOL 5 MG TABLET PO SCH (09:54)
[2019-08-13] MEDS: PANTOPRAZOLE 40 MG TABLET PO SCH (09:55)
[2019-08-13] MEDS: predniSONE 5 MG TABLET PO SCH ×2 (09:55→21:16)
[2019-08-13] MEDS: CHLORHEXIDINE 0.12% ORAL RINSE 60 ML BOTTLE SWISH/SPIT SCH ×2 (09:55→21:24)
[2019-08-13] MEDS: DOCUSATE SODIUM 100 MG CAPSULE PO SCH (09:55)
[2019-08-13] MEDS: FLUTICASONE 50 MCG NASAL SPRAY 16 GM BOTTLE BOTH NARES SCH ×2 (09:56→21:25)
[2019-08-13] MEDS: AZELASTINE NASAL 137 MCG/SPRAY 30 ML BOTTLE BOTH NARES SCH ×2 (09:56→21:25)
[2019-08-13] MEDS: BECLOMETHASONE 80 MCG/PUFF INHALER 8.7 GM INH SCH ×2 (09:57→21:25)
[2019-08-13] MEDS: MONTELUKAST 10 MG TABLET PO SCH (13:07)
[2019-08-13] MEDS: ATORVASTATIN 40 MG TABLET PO SCH (21:16)
[2019-08-13] MEDS: ASPIRIN EC 81 MG TABLET PO SCH (21:16)
[2019-08-14 04:46] LABS: Eosinophils # 0.1 10*3/uL (0.0-0.87); Eosinophils % 0.6 % (0.00-10.9); Hematocrit 29.4 VOL% (42.0-52.0); Hemoglobin 9.8 GM/DL (14.0-18.0); Immature Granulocytes % 0.8 %; Immature Granulocytes Absolute 0.07 #; Lymphocytes # 0.7 10*3/uL (1.4-4.0); Lymphocytes % 8.3 % (21.2-54.2); Mean Corpuscular HGB Conc 33.3 GM/DL (32-36); Mean Corpuscular Volume 89.4 FL (87-102); Mean Platelet Volume 10.6 FL (9.6-12.0); Monocytes % 8.1 % (1.7-12.7); Neutrophils % 82.2 % (38.7-73.9); Platelet Count 103 T/CUMM (130-400); Red Blood Count 3.29 MC/CUMM (3.8-5.5); Red Cell Distribution Width 13.6 % (9.3-17.3); White Blood Count 8.4 T/CUMM (4-12)
[2019-08-14 04:57] LABS: Albumin 3.1 G/DL (3.4-5.0); Bilirubin,Total 1.6 MG/DL (0.2-1.0); Calcium 7.9 MG/DL (8.5-10.1); Osmolality,Calculated 284.8 MOS/KG (273-304)
[2019-08-14] MEDS: BECLOMETHASONE 80 MCG/PUFF INHALER 8.7 GM INH SCH ×2 (08:50→20:38)
[2019-08-14] MEDS: AZELASTINE NASAL 137 MCG/SPRAY 30 ML BOTTLE BOTH NARES SCH ×2 (08:50→20:38)
[2019-08-14] MEDS: FLUTICASONE 50 MCG NASAL SPRAY 16 GM BOTTLE BOTH NARES SCH ×2 (08:51→20:37)
[2019-08-14] MEDS: predniSONE 5 MG TABLET PO SCH ×2 (08:52→20:36)
[2019-08-14] MEDS: ASCORBIC ACID 500 MG TABLET PO SCH ×2 (08:52→20:36)
[2019-08-14] MEDS: DOCUSATE SODIUM 100 MG CAPSULE PO SCH (08:52)
[2019-08-14] MEDS: PANTOPRAZOLE 40 MG TABLET PO SCH (08:52)
[2019-08-14] MEDS: BISOPROLOL 5 MG TABLET PO SCH (08:53)
[2019-08-14] MEDS: CHLORHEXIDINE 0.12% ORAL RINSE 60 ML BOTTLE SWISH/SPIT SCH ×2 (08:53→20:36)
[2019-08-14] MEDS: MONTELUKAST 10 MG TABLET PO SCH (13:17)
[2019-08-14] MEDS: ATORVASTATIN 40 MG TABLET PO SCH (20:36)
[2019-08-14] MEDS: ASPIRIN EC 81 MG TABLET PO SCH (20:36)
[2019-08-15 06:02] LABS: Eosinophils # 0.1 10*3/uL (0.0-0.87); Eosinophils % 1.2 % (0.00-10.9); Hematocrit 29.5 VOL% (42.0-52.0); Hemoglobin 9.5 GM/DL (14.0-18.0); Immature Granulocytes % 0.6 %; Immature Granulocytes Absolute 0.04 #; Lymphocytes # 0.7 10*3/uL (1.4-4.0); Lymphocytes % 9.9 % (21.2-54.2); Mean Corpuscular HGB Conc 32.2 GM/DL (32-36); Mean Corpuscular Volume 91.3 FL (87-102); Mean Platelet Volume 10.4 FL (9.6-12.0); Neutrophils % 79.3 % (38.7-73.9); Platelet Count 113 T/CUMM (130-400); Red Blood Count 3.23 MC/CUMM (3.8-5.5); Red Cell Distribution Width 13.4 % (9.3-17.3); White Blood Count 6.9 T/CUMM (4-12)
[2019-08-15 06:32] LABS: Alanine Aminotransferase 30 U/L (16-61); Albumin 2.9 G/DL (3.4-5.0); Alkaline Phosphatase 40 U/L (45-117); Aspartate Amino Transferase 14 U/L (0-37); Bilirubin,Indirect 1.1 MG/DL (0.0-1.0); Blood Urea Nitrogen 40 MG/DL (7-18); Calcium 7.6 MG/DL (8.5-10.1); Estimated Glom Filtration Rate 59 ML/MIN; Glucose 94 MG/DL (74-106); Osmolality,Calculated 279.1 MOS/KG (273-304); Total Protein 4.8 G/DL (6.4-8.3)
[2019-08-15 06:33] LABS: Troponin I 0.505 NG/ML (0.00-0.045)
[2019-08-15] MEDS ORDERED: LOSARTAN 50 MG TABLET PO SCH (09:00)
[2019-08-15] MEDS: FLUTICASONE 50 MCG NASAL SPRAY 16 GM BOTTLE BOTH NARES SCH (09:46)
[2019-08-15] MEDS: AZELASTINE NASAL 137 MCG/SPRAY 30 ML BOTTLE BOTH NARES SCH (09:46)
[2019-08-15] MEDS: ASCORBIC ACID 500 MG TABLET PO SCH (09:46)
[2019-08-15] MEDS: CHLORHEXIDINE 0.12% ORAL RINSE 60 ML BOTTLE SWISH/SPIT SCH (09:47)
[2019-08-15] MEDS: DOCUSATE SODIUM 100 MG CAPSULE PO SCH (09:47)
[2019-08-15] MEDS: PANTOPRAZOLE 40 MG TABLET PO SCH (09:47)
[2019-08-15] MEDS: BISOPROLOL 5 MG TABLET PO SCH (09:47)
[2019-08-15] MEDS: BECLOMETHASONE 80 MCG/PUFF INHALER 8.7 GM INH SCH (09:48)
[2019-08-15] MEDS: predniSONE 5 MG TABLET PO SCH (10:19)
[2019-08-15 11:35] VITALS: BP 117/51
[2019-08-15] MEDS: MONTELUKAST 10 MG TABLET PO SCH (12:20)
== END 2019-08-15 12:35 | disposition home health service (06) | DRG 236 ==
LOC: N.TELEN 10:29 → N.CVR 08-10 10:47 → N.TELES 08-11 08:38